=== PATIENT | female | born 1965 | race American Indian/Alaskan Native ===

== ENCOUNTER 2022-06-19 13:34 | Outpatient (REF) | payer OTHER, SELFPAY ==
[2022-06-19 16:29] LABS: MANUAL DIFF FLAG NO
[2022-06-19 16:33] LABS: Basophils Percent Auto 0.3 % (0-2); Eosinophils Absolute Auto 0.1 X10*3/uL (0.0-0.4); Eosinophils Percent Auto 2.3 % (0-4); Hematocrit 43.3 % (37.0-47.0); Hemoglobin 14.3 g/dl (12.0-16.0); Imm Gran Abs Auto 0.03 X10*3/uL (0.00-0.03); Imm Gran Pct Auto 0.5 % (0.0-0.4); Lymphocytes Absolute Auto 1.7 X10*3/uL (1.2-4.9); Lymphocytes Percent Auto 28.2 % (20-40); Mean Corpuscular Hemoglobin 29.7 pg (27.0-33.0); Mean Corpuscular Volume 89.8 fL (80.0-98.0); Mean Platelet Volume 11.7 fL (9.4-12.3); Monocytes Absolute Auto 0.5 X10*3/uL (0.1-1.2); Monocytes Percent Auto 7.8 % (2-11); Neutrophils Absolute Auto 3.7 x10*3/uL (2.0-8.3); Neutrophils Percent Auto 60.9 % (45-73); Platelet Count 257 X10*3/uL (160-400); Red Blood Count 4.82 X10*6/uL (4.20-5.50); Red Cell Distribution Width 12.8 % (11.0-16.0); White Blood Count 6.1 X10*3/uL (4.8-10.8)
[2022-06-19 16:50] LABS: Alanine Aminotransferase 16 U/L (0-31); Albumin Level 4.2 g/dL (3.5-5.0); Alkaline Phosphatase 105 U/L (39-117); Anion Gap 9 (12-20); Aspartate Amino Transferase 18 U/L (5-31); Bilirubin Total 0.7 mg/dL (0.0-1.0); Blood Urea Nitrogen 14 mg/dL (9-16); Calcium 9.6 mg/dL (8.4-10.2); Carbon Dioxide 30 mmol/L (22-29); Chloride 105 mmol/L (96-108); Cholesterol 173 mg/dL; Estimated Glomerular Filt Rate > 60; Glucose Fasting 83 mg/dL (60-99); HDL Cholesterol 44 mg/dL; LDL Cholesterol Calculated 114 mg/dl; Potassium 4.5 mmol/L (3.3-5.1); Sodium 139 mmol/L (135-145); Triglycerides 77 mg/dL
[2022-06-19 16:53] LABS: Estimated Average Glucose 103 mg/dL; Hemoglobin A1c % 5.2 %
[2022-06-19 17:11] LABS: TSH reflex Free T4 2.52 uIU/mL (0.32-4.0); Vitamin B12 282 pg/mL (200-900)
[2022-06-24 16:49] LABS: Vitamin D 25-OH, D2 <4 ng/mL; Vitamin D 25-OH, D3 13 ng/mL; Vitamin D 25-OH, Total 13 ng/mL (30-100)
== END 2022-06-19 13:35 | disposition home or self-care (01) ==
LOC: HO.HMGCLDS 13:34
PROVIDERS: PCP Internal Medicine; Visit Provider Internal Medicine
DX: Z00.01 Encounter for general adult medical examination with abnormal findings (principal); E66.09 Other obesity due to excess calories; R26.81 Unsteadiness on feet; F99 Mental disorder, not otherwise specified; Z83.3 Family history of diabetes mellitus
CPT/HCPCS: 36415; 80053; 80061; 82306; 82607; 83036; 84443; 85025

== ENCOUNTER 2022-06-27 13:59 | Outpatient (REF) | payer OTHER, SELFPAY ==
--- NOTE | ~2022-06-27 | MM_ITS ---
EXAMINATION: MM SCREENING DIGITAL BREAST TOMOSYNTHESIS, BILATERAL CLINICAL INFORMATION: Screening. Asymptomatic. The lifetime risk of breast cancer based on the Tyrer-Cuzick Model is 9%. COMPARISON: Outside mammography: 11/04/2012, 10/10/2011, 06/28/2010 ([facility]) TECHNIQUE: Digital breast tomosynthesis is performed in both the craniocaudal and mediolateral oblique views along with computer-aided detection (CAD). Synthesized 2D images are generated from the tomosynthesis. FINDINGS: There are scattered areas of fibroglandular density (ACR BI-RADS breast composition Category b). Breast tissue composition borders on predominantly fatty. There are no significant masses, abnormal calcifications, or other abnormalities. No developing density or architectural abnormality. The axilla are unremarkable. MM/MM tomosynthesis screening BI IMPRESSION: No mammographic evidence of malignancy. ASSESSMENT: BI-RADS 1: Negative RECOMMENDATION: Routine annual mammography screening. This patient's information was entered into a reminder system with a target due date for their next mammogram.
== END 2022-06-27 14:00 | disposition home or self-care (01) ==
LOC: HO.MAMMO 13:59
PROVIDERS: PCP Internal Medicine; Visit Provider Internal Medicine
DX: Z12.31 Encounter for screening mammogram for malignant neoplasm of breast (principal)
CPT/HCPCS: 77063; 77067

== ENCOUNTER 2022-09-16 13:44 | Outpatient (REF) | payer OTHER, SELFPAY ==
[2022-09-17 08:54] LABS: BV Int Neg Control Negative (Negative); BV Int Pos Control Positive (Positive)
== END 2022-09-16 13:45 | disposition home or self-care (01) ==
LOC: HO.LAB 13:44
PROVIDERS: PCP Internal Medicine; Visit Provider Advanced Practice Midwife
DX: Z01.419 Encounter for gynecological examination (general) (routine) without abnormal findings (principal); N95.0 Postmenopausal bleeding; N95.1 Menopausal and female climacteric states; Z20.2 Contact with and (suspected) exposure to infections with a predominantly sexual mode of transmission
CPT/HCPCS: 87480; 87510; 87660

== ENCOUNTER 2022-09-16 14:26 | Outpatient (REF) | payer OTHER, SELFPAY ==
[2022-09-16 17:35] LABS: CT PCR NOT DETECTED (Not Detect.); NG PCR NOT DETECTED (Not Detect.)
[2022-09-18 00:33] LABS: Follicle Stimulating Hormone 27.2 mIU/mL
[2022-09-19 06:28] LABS: HPV mRNA E6/E7 rflx Not Detected (Not Detected)
== END 2022-09-16 14:27 | disposition home or self-care (01) ==
LOC: HO.LNP 14:26
PROVIDERS: Visit Provider Advanced Practice Midwife
DX: Z01.419 Encounter for gynecological examination (general) (routine) without abnormal findings (principal); N95.0 Postmenopausal bleeding; R23.2 Flushing; Z20.2 Contact with and (suspected) exposure to infections with a predominantly sexual mode of transmission
CPT/HCPCS: 0353U; 83001; 87624; 88142

== ENCOUNTER 2022-09-19 14:13 | Outpatient (REF) | payer OTHER, MEDICAID, SELFPAY ==
--- NOTE | ~2022-09-19 | US_ITS ---
EXAMINATION: US PELVIS CLINICAL INFORMATION: 57-year-old, with postmenopausal bleeding COMPARISON: None available. TECHNIQUE: Ultrasound of the pelvis is performed using both transabdominal and transvaginal transducers along with Doppler. Transvaginal imaging is performed due to inadequate visualization transabdominally. FINDINGS: Uterus: The uterus is anteverted and measures 13 x 9.1 x 8.8 cm. Within the endometrial canal is a large cystic heterogeneous mass measuring 7.9 x 7.5 x 7.9 cm. Adnexa: Bilateral ovaries are not visualized. No large adnexal mass. US/US pelvic and transvaginal IMPRESSION: Within the endometrial canal is a large cystic heterogeneous mass measuring 7.9 x 7.5 x 7.9 cm. This is concerning for malignancy. Recommend gynecologic consult. The report will be called to the ordering clinician by a [place] [facility] [employer].
== END 2022-09-19 14:14 | disposition home or self-care (01) ==
LOC: HO.US 14:13
PROVIDERS: PCP Internal Medicine; Visit Provider Advanced Practice Midwife
DX: N95.0 Postmenopausal bleeding (principal)
CPT/HCPCS: 76830; 76856

== ENCOUNTER 2022-09-29 09:39 | Outpatient (REF) | payer OTHER, MEDICAID, SELFPAY | END 2022-09-29 09:40 | disposition home or self-care (01) | LOC: HO.LAB 09:39 | PROVIDERS: PCP Internal Medicine; Visit Provider Advanced Practice Midwife | DX: N80.9 Endometriosis, unspecified (principal); Z71.2 Person consulting for explanation of examination or test findings | CPT/HCPCS: 58100; 81025; 88305 ==

== ENCOUNTER → 2022-10-01 10:10 | Outpatient (BNVA) | payer OTHER, SELFPAY | PROVIDERS: Visit Provider Advanced Practice Midwife | DX: Z71.2 Person consulting for explanation of examination or test findings (principal); N80.9 Endometriosis, unspecified; N85.8 Other specified noninflammatory disorders of uterus | CPT/HCPCS: Q3014 ==

== ENCOUNTER 2022-10-09 12:31 | Outpatient (REF) | payer OTHER, SELFPAY ==
[2022-10-11 12:39] LABS: CA-125 52 U/mL (<35)
== END 2022-10-09 12:32 | disposition home or self-care (01) ==
LOC: HO.LAB 12:31
PROVIDERS: Visit Provider Advanced Practice Midwife
DX: N85.8 Other specified noninflammatory disorders of uterus (principal)
CPT/HCPCS: 36415; 86304

== ENCOUNTER → 2022-10-29 13:48 | Outpatient (BNVA) | payer OTHER, SELFPAY | PROVIDERS: Visit Provider Advanced Practice Midwife | DX: Z71.2 Person consulting for explanation of examination or test findings (principal); N85.8 Other specified noninflammatory disorders of uterus; N95.0 Postmenopausal bleeding | CPT/HCPCS: Q3014 ==

== ENCOUNTER 2024-01-22 14:28 | Outpatient (AMB) | payer OTHER, SELFPAY ==
--- NOTE | 2024-01-22 14:37 | A.OFFPC_ITS ---
Vital Signs 01/22/24 14:38 Height 5 ft 3 in Weight 218 lb 2 oz BMI 38.6 BP 126/80 Blood Pressure Location Rt brachial Position Sitting Pulse 69 Pulse Source Pulse Oximeter Pulse Oximetry (%) 96 Oxygen Delivery Method Room Air Intake Visit Reasons: lower leg edema x 3 weeks Allergies acetaminophen [From Percocet] Allergy (Intermediate, Verified 01/22/24 14:38) Hives oxycodone [From Percocet] Allergy (Intermediate, Verified 01/22/24 14:38) Hives Penicillins [PENICILLINS] Allergy (Unknown, Verified 01/22/24 14:38) UNKNOWN Medication List - Last Reconciled 01/22/24 by Nurys Souza MD clonazepam 1 mg PO BEDTIME PRN paroxetine HCl 30 mg PO DAILY quetiapine mg PO Tobacco use date assessed: 01/22/24 Dental Screening Dental Screen Date: 01/22/24 Did you have a dental visit in the last 12 months?: Yes Did you have a dental problem in the last 6 months where you did not have access to dental care?: No Was dental information given to patient?: Patient has dentist HPI lower leg edema x 3 weeks HPI Details Patient is a 58-year-old female psychiatric patient and is taking psychiatric medication History of lap band reversal as it did not help lose weight Came in today to talk about swelling of her ankle at the end of the day I see that she has also gained weight almost 30 lb since September of last year On exam her lungs are clear and heart rate is regular EKG done today showed normal sinus rhythm 63 beats per, no acute ST-T findings I have ordered labs for the patient she will return in couple of weeks for follow-up Meanwhile I have also sent Lasix that she may take if her feet swell She has no swelling at this time [facility] Medical History Endometriotic cyst Uterine mass Hot flashes PMB (postmenopausal bleeding) Depression with anxiety Surgical History H/O eye surgery Hx of laparoscopic gastric banding Family History Paternal Aunt History of breast cancer Social History Housing: Apartment Alcohol intake: never Patient Tobacco Use Status: Current everyday Tobacco user Cigarettes Per Day: 15 e-Cigarette/Vaping Use: Never Used service: No Current occupational status: employed Sexual orientation: Straight/Heterosexual Gender identity: Female Cognitive needs: No Hearing needs: No Vision needs: Yes Questionnaire PHQ-9 Over the last 2 weeks, how often have you been bothered by any of the following problems? 1. Little interest or pleasure in doing things: not at all 2. Feeling down, depressed, or hopeless: not at all 3. Trouble falling or staying asleep, or sleeping too much: not at all 4. Feeling tired or having little energy: not at all 5. Poor appetite or overeating: not at all 6. Feeling bad about yourself - or that you are a failure or have let yourself or your family down: not at all 7. Trouble concentrating on things, such as reading the newspaper or watching television: not at all 8. Moving or speaking so slowly that other people could have noticed. Or the opposite - being so fidgety or restless that you have been moving around a lot more than usual: not at all 9. Thoughts that you would be better off or of hurting yourself in some way: not at all Total score: 0 Depression Screening Interpretation: Negative Depression Screening Done: Yes 96099 - PHQ-9 Billing: Yes Source: Developed by Drs. Lenny Avila, Stella Bianchi, Doroteo Baez and colleagues, with an educational armand from [employer]. Thrive Questionnaire Date Thrive assessed: 01/22/24 I am a: Patient What is your living situation today?: I have a steady place to live Within the past 12 months, did the food you bought not last and you didn't have the money to get more?: Never true Within the past 12 months, did you worry whether your food would run out before you got money to buy more?: Never true Do you have trouble paying for medicines?: No Do you have trouble getting transportation to medical appointments?: No Do you have trouble paying your heating and electricity bill?: No Do you have trouble taking care of your child, family member or friend?: No Do you have trouble with day-to-day activities such as bathing, preparing meals, shopping, managing finances, etc.?: No Are you currently unemployed and looking for a job?: No Are you interested in more education?: No Please select the resources that you would like help with: None Currently or been in a relationship where the following occur: No concerns reported THRIVE Score: 0 AUDIT C Alcohol Use Questionnaire (AUDIT-C) 1. How often do you have a drink containing alcohol?: Never 3. How often do you have six or more drinks on one occasion?: Never Total Score: 0 Score Reviewed/Action Taken: Yes SHANIQUE-7 AMB Questionnaire SHANIQUE-7 Date SHANIQUE - 7 assessed: 01/22/24 Feeling nervous, anxious, or on edge: 0 = Not at all Not being able to stop or control worryin = Not at all Worrying too much about different things: 0 = Not at all Trouble relaxin = Not at all Being so restless that it is hard to sit still: 0 = Not at all Becoming easily annoyed or irritable: 0 = Not at all Feeling afraid as if something awful might happen: 0 = Not at all Total SHANIQUE-7 score (0-4 normal; 5-9 mild; 10-14 moderate; 15-21 severe): 0 Source: Developed by Drs. Lenny Avila, Stella Bianchi, Doroteo Baez and colleagues, with an educational armand from [employer]. SHANIQUE-7 Assessment Billing SHANIQUE-7 Assessment Tool: SHANIQUE-7 Assessment 81027 Review of Systems Const Denies chills and Denies fever(s) ENT Denies epistaxis and Denies nasal discharge Card Denies chest pain Resp Denies chest congestion, Denies cough and Denies hemoptysis GI Denies diarrhea and Denies nausea Skin/Breast Denies rash Neuro Reports no additional complaints Psych Reports no additional complaints Endo Reports no additional complaints Physical exam (Primary Care) Vital Signs: Last Vital Signs Pulse 69 01/22/24 14:38 BP 126/80 01/22/24 14:38 Pulse Ox 96 01/22/24 14:38 Oxygen Delivery Method Room Air 01/22/24 14:38 BMI result Body Mass Index 38.6 Tobacco/Smoking Status: Tobacco use Status Tobacco use date assessed 01/22/24 01/22/24 14:41 Patient Tobacco Use Status Current everyday Tobacco 01/22/24 14:41 e-Cigarette/Vaping Use Never Used 01/22/24 14:41 PHQ-9: PHQ-9 Score PHQ-9: Total score 0 01/22/24 15:33 Depression Screening Interpretation: Negative Thrive Assessment: Date of Thrive Assessment Date Thrive assessed 01/22/24 01/22/24 14:41 Currently or been in a relationship where the following occur: No concerns reported Const General: cooperative, comfortable and no acute distress Orientation/consciousness: patient oriented x3 HENMT Head: Yes normocephalic Eyes General: appearance normal, both eyes and all related structures Neck Neck: Yes supple Resp Effort & Inspection: normal respiratory effort, no cough and no stridor Cardio Rhythm: regular rhythm Heart sounds: S1 normal heart sound present and S2 normal heart sound present Skin General skin exam: turgor normal Neuro General: patient oriented x3, tone normal and moves all extremities Extrem Right lower extremity: no edema Left lower extremity: no edema Office Procedures EKG [id number], Complete Assessment and Plan Assessment & Plan (1) Edema: Code(s): R60.9 - Edema, unspecified Qualifiers: Edema type: localized Qualified Code(s): R60.0 - Localized edema (2) Psychiatric illness: Code(s): F99 - Mental disorder, not otherwise specified (3) Obesity due to excess calories: Code(s): E66.09 - Other obesity due to excess calories Qualifiers: Body mass index: BMI 38.0-38.9 Obesity classification: adult class 2 (BMI 35 - 39.9) Serious obesity comorbidity presence: without serious comorbidity Qualified Code(s): E66.09 - Other obesity due to excess calories; Z68.38 - Body mass index [BMI] 38.0-38.9, adult (4) Family history of diabetes mellitus: Code(s): Z83.3 - Family history of diabetes mellitus Plan Patient is a 58-year-old female psychiatric patient and is taking psychiatric medication History of lap band reversal as it did not help lose weight Came in today to talk about swelling of her ankle at the end of the day I see that she has also gained weight almost 30 lb since September of last year On exam her lungs are clear and heart rate is regular EKG done today showed normal sinus rhythm 63 beats per, no acute ST-T findings I have ordered labs for the patient she will return in couple of weeks for follow-up Meanwhile I have also sent Lasix that she may take if her feet swell She has no swelling at this time Orders: Orders Comprehensive Met. Panel Today E66.09 - Other obesity due to excess calories, F99 - Mental disorder, not otherwise specified, R60.9 - Edema, unspecified, Z83.3 - Family history of diabetes mellitus TSH reflex Free T4 Today E66.09 - Other obesity due to excess calories, F99 - Mental disorder, not otherwise specified, R60.9 - Edema, unspecified, Z83.3 - Family history of diabetes mellitus AMB EKG-In Office Today R60.9 - Edema, unspecified Complete Blood Count Auto Diff Today E66.09 - Other obesity due to excess calories, F99 - Mental disorder, not otherwise specified, R60.9 - Edema, unspecified, Z83.3 - Family history of diabetes mellitus LDL Cholesterol Direct Today E66.09 - Other obesity due to excess calories, F99 - Mental disorder, not otherwise specified, R60.9 - Edema, unspecified, Z83.3 - Family history of diabetes mellitus Medications: New furosemide (Lasix) 20 mg PO ONCE 14 days 14 tabs 0RF Coding Level of Care Code Est Pt Level 4 (05056) Diagnoses Localized edema R60.0 Edema type: localized Psychiatric illness F99 Class 2 obesity due to excess calories without serious comorbidity with body mass index (BMI) of 38.0 to 38.9 in adult E66.09; Z68.38 Body mass index: BMI 38.0-38.9 Obesity classification: adult class 2 (BMI 35 - 39.9) Serious obesity comorbidity presence: without serious comorbidity Family history of diabetes mellitus Z83.3 CPT Codes EKG - CPT: 68199-[id number], Complete ([id number]) Additional Codes SHANIQUE-7 Assessment Billing - SHANIQUE-7 Assessment Tool: SHANIQUE-7 Assessment 77524 ([id number])
[2024-01-22 14:38] VITALS: BP 126/80; PULSE 69; O2SAT 96; BMI 38.6
== END 2024-01-22 15:40 | disposition home or self-care (01) ==
PROVIDERS: PCP Internal Medicine; Visit Provider Internal Medicine
DX: R60.0 Localized edema (principal); F99 Mental disorder, not otherwise specified; E66.09 Other obesity due to excess calories; Z68.38 Body mass index [BMI] 38.0-38.9, adult; Z83.3 Family history of diabetes mellitus
CPT/HCPCS: 93000; 99214

== ENCOUNTER 2024-09-21 12:52 | Outpatient (REF) | payer MEDICARE, SELFPAY ==
--- NOTE | ~2024-09-21 | XR_ITS ---
EXAMINATION: XR LUMBOSACRAL SPINE CLINICAL INFORMATION: M54.50 - Low back pain, unspecified COMPARISON: None available. TECHNIQUE: Three views of the lumbosacral spine. FINDINGS: Multilevel marginal osteophyte formation and syndesmophyte formation and endplate sclerosis and decreased intervertebral disc height. Grade 1 retrolisthesis L1-2. S-shaped curvature of the thoracolumbar junction. No lytic or blastic lesions. Patient's large body habitus/obesity. XR/XR lumbar spine 2-3V IMPRESSION: Multilevel thoracolumbar spondylosis and a shaped curvature of the lumbar spine. Grade 1 retrolisthesis L1-2. Electronically signed by: Jonathan Boyle MD 09/21/2024 02:27 PM EDT
--- NOTE | ~2024-09-21 | XR_ITS ---
EXAMINATION: XR THORACIC SPINE CLINICAL INFORMATION: M54.50 - Low back pain, unspecified COMPARISON: None available. TECHNIQUE: 3 views of the thoracic spine were obtained. FINDINGS: Multilevel marginal osteophyte formation and endplate sclerosis and decreased intervertebral disc height. No acute cortical disruption or gross malalignment. Patient's large body habitus. XR/XR thoracic spine 2V IMPRESSION: Multilevel spondylosis without acute fracture or gross listhesis. Electronically signed by: Jonathan Boyle MD 09/21/2024 02:25 PM EDT
--- OUTSIDE RECORDS SUMMARY | 2024-09-21 14:37 | XMS_ITS | Clinical Summary ---
Author Organization [facility] Address [address] [place] [address] Care Team Providers Care Field Operations Manager Name Role Phone Alem Escobar PA-C Primary Care Provider [phone] Source Comments PLEASE NOTE, if this patient is a minor, it may be UNLAWFUL to discuss sensitive information that is contained in these records (such as FAMILY PLANNING, MENTAL HEALTH or SUBSTANCE ABUSE) with the minor patient's parent or other person without the patient's specific authorization.[facility] Allergies Active Allergy Reactions Criticality Noted Date Comments Penicillins Rash High 01/05/2013 Medications QUEtiapine (SEROQUEL) 100 mg tabletIndications :Insomnia Take 1 Tab by mouth nightly at bedtime. PER PSYCH. 01/06/20 13 Active paroxetine (PAXIL) 10 mg tablet Take 10 mg by mouth nightly at bedtime PER PSYCH 09/21/19 17 Active clonazePAM (KLONOPIN) 0.5 mg tablet Take 0.5 mg by mouth 2 (two) times daily PER PSYCH 09/21/19 17 Active cholecalciferol, vitamin D3, 2,000 unit capsuleIndication s:Vitamin D insufficiency Take 1 Cap by mouth once daily 90 Cap 3 10/23/19 17 Active fluticasone (FLONASE) 50 mcg/actuation nasal sprayIndications: Seasonal allergic rhinitis due to pollen Place 1 [place] into the nostril(s) once daily 16 g 4 10/23/19 17 Active loratadine (CLARITIN) 10 mg tabletIndications :Seasonal allergic rhinitis due to pollen Take 1 Tab by mouth once daily as needed for allergies 30 Tab 4 10/23/19 17 Active omeprazole (PRILOSEC) [address] capsuleIndication s:Gastroesophagea l reflux disease without esophagitis Take 1 Cap by mouth 2 (two) times daily before a meal Do not crush or chew. 60 Cap 3 10/23/19 17 Active calcium carbonate 500 mg calcium (1,250 mg) capsuleIndication s:Routine general medical examination at a health care facility Take 1 Cap by mouth 2 (two) times daily with a meal 60 Cap 3 10/23/19 17 Active docusate sodium (COLACE) 50 mg capsuleIndication s:Constipation, unspecified constipation type Take 1 Cap by mouth 2 (two) times daily as needed for constipation 30 Cap 2 10/23/19 17 Active nicotine (NICORETTE) 2 mg gumIndications:To bacco abuse disorder Take 1 Each by mouth as needed for smoking cessation Do not eat or drink for 15 minutes before or while chewing gum. 100 Each 12/26/19 17 Active ibuprofen (ADVIL,MOTRIN) 800 mg tablet Take 1 Tab by mouth 3 (three) times daily as needed for pain 90 Tab 2 12/26/19 17 Active Active Problems Problem Noted Date Diagnosed Date LBP (low back pain) 09/24/2011 Overview (01/05/2013): L5S1 DDD F/U [facility]. Tobacco abuse disorder Obesity Overview (01/05/2013): S/p lap band 10/2005 Depression Overview (01/05/2013): Psych f/u at [facility]. Insomnia Overview (01/05/2013): Psych f/u at [facility]. H/O laparoscopic adjustable gastric banding 11/04 06 Overview (01/05/2013): S/p repair 01/2008. GERD (gastroesophageal reflux disease) Allergic rhinitis due to allergen Vitamin D insufficiency Left lateral epicondylitis Overview (01/05/2013): X-rays left elbow 09/12/08 revealed small spurs and ST calcifications. Immunizations Immunization Administration Dates Next Due INFLUENZA, SEASONAL, INJECTABLE 05/25/2013,06/16 Td(adult),2 Lf tetanus toxoid,preservative free 01/29/2010 Family History Medical History Relation Name Comments Diabetes Brother Diabetes Father Heart Problems Father Hypertension Father Diabetes Mother Cancer Paternal Aunt breast Diabetes Sister Relation Name Status Comments Brother Alive Father (Age 72) Mother Alive Paternal Aunt Sister Alive Social History Tobacco Use Types Packs/Day Years Used Date Smoking Tobacco: Every Day Cigarettes Smokeless Tobacco: Never Comments:pt states that smok es 10 cigarettes a day Alcohol Use Standard Drinks/Week Comments No 0 (1 standard drink = 0.6 oz pur e alcohol) Social Connections Answer Date Recorded Social Connections and Isolation 0 01/08/2019 Financial Resource Strain Answer Date R ecorded Financial Resource Strain 0 2018 Stress Answer Date Recorded Stress 0 01/08/2019 Physical Activity Answer Date Recorded Physical Activity 0 01/08/2019 Food Insecurity Answer Date Recorded Food 0 01/08/2019 Transportation Needs Answer Date Record ed Transportation 0 01/08/2019 Housing Stability Answer Date Recorded Housing 0 01/08/2019 Safety and Environment Answer Date Nikunj rded Safety 0 01/08/2019 Utilities Answer Date Recorded Utilities 0 01/08/2019 Employment Answer Date Recorded Employment 0 01/08/2019 Comments No Sex and Gender Information Value Date Recorded Sex Assigned at Not on file Legal Sex Female 11:36 AM PDT Gender Identity Not on file Sexual Orientation Not on file Last Filed Vital Signs Vital Sign Reading Time Taken Comments Blood Pressure 100/79 10/22/2016 11:18 AM EDT Pulse 64 10/22/2016 11:18 AM EDT Temperature 36.4 ??C (97.6 ??F) 10/22/2016 11:18 AM E DT Respiratory Rate 12 10/22/2016 11:18 AM EDT Oxygen Saturation - - Inhaled Oxygen Concentration - - Weight 68 kg (150 lb) 10/22/2016 11:18 AM EDT Height 157.5 cm (5' 2 ) 10/22/2016 11:18 AM EDT Body Mass Index 27.44 10/22/2016 11:18 AM EDT Plan of Treatment Not on file Insurance MEDICARE - [place] Care Teams Field Operations Manager Relationship Specialty Start Date End Date Alem Escobar PA-C [address] [place] [address] PCP - General Internal Medicine 09/07/17
--- OUTSIDE RECORDS SUMMARY | 2024-09-21 14:37 | XMS_ITS | Clinical Summary ---
Author Organization [facility] Address [address] [place] [address] Phone Care Team Providers Care Billboard Poster Helper Name Role Phone Elisa Jennings MD Primary Care Provider [phone] Surgical History Surgery Date Site/Laterality Comments EYE SURGERY N/A PROCEDURE: HISTORICAL EYE SURGERY OTHER SURGICAL HISTORY 2019 PROCEDURE: [place] GASTRIC RSTCV W/O BYP VERTICAL-BANDED GASTROPLY; COMMENT: Laparoscopic gastric band OTHER SURGICAL HISTORY 12/16/2022 PROCEDURE: [place] TOTAL ABDOMINAL HYSTERECT W/WO RMVL TUBE OVARY; [...] topic Insurance [employer] MEDICARE ADVANTAGE Care Teams Billboard Poster Helper Relationship Specialty Start Date End Date Elisa Jennings MD PCP - General 03/08/20
== END 2024-09-21 12:53 | disposition home or self-care (01) ==
LOC: HO.HMGCX 12:52
PROVIDERS: PCP Internal Medicine; Visit Provider Internal Medicine
DX: M54.50 Low back pain, unspecified (principal); R07.9 Chest pain, unspecified; M54.6 Pain in thoracic spine; G89.29 Other chronic pain; E66.01 Morbid (severe) obesity due to excess calories; K21.9 Gastro-esophageal reflux disease without esophagitis; Z91.81 History of falling
CPT/HCPCS: 72070; 72100; 96127; 99212

== ENCOUNTER 2024-09-21 12:52 | Outpatient (AMB) | payer MEDICARE, MEDICAID, SELFPAY ==
[2024-09-21 12:54] VITALS: BP 128/80; PULSE 99; O2SAT 95; BMI 40.6
--- NOTE | 2024-09-21 12:54 | A.OFFPC_ITS ---
Vital Signs 09/21/24 12:54 Height 5 ft 3 in Weight 229 lb 6 oz BMI 40.6 BP 128/80 Blood Pressure Location Rt brachial Position Sitting Pulse 99 Pulse Source Pulse Oximeter Pulse Oximetry (%) 95 Oxygen Delivery Method Room Air Intake Visit Reasons: Back Pain Allergies acetaminophen [From Percocet] Allergy (Intermediate, Verified 09/21/24 12:54) Hives oxycodone [From Percocet] Allergy (Intermediate, Verified 09/21/24 12:54) Hives Penicillins [PENICILLINS] Allergy (Unknown, Verified 09/21/24 12:54) UNKNOWN Medication List - Last Reconciled 09/21/24 by Nurys Souza MD clonazepam 1 mg PO BEDTIME PRN furosemide (Lasix) 20 mg PO ONCE 14 days paroxetine HCl 30 mg PO DAILY quetiapine mg PO Tobacco use date assessed: 09/21/24 Dental Screening Dental Screen Date: 09/21/24 Did you have a dental visit in the last 12 months?: Yes Did you have a dental problem in the last 6 months where you did not have access to dental care?: No Was dental information given to patient?: Patient has dentist HPI Back Pain HPI Details History - The patient is a 59-year-old female pr esenting with chronic back pain. - The patient reports experiencing signi ficant back pain over the past year, which has intensified recently. - She attributes increased pain to weigh t gain following the removal of her lap band. - The patient describes difficulty risin g from bed after lying down due to the severity of the lower and mid-back pain. - She reports incidents of falling due t o leg weakness, once in the kitchen where she couldn?t get up unassisted. - Pain reportedly worsens with physical activities like packing and using the stairs, as her laundry is located downstairs. - The patient mentions taking four Tylen ol for pain, despite being advised against due to concerns of overuse. - She identifies allergies to oxycodone and penicillin but tolerates NSAIDs like ibuprofen. - Reflux symptoms are noted, primarily m anaged with ahus-eum-kieeuqb Tums. - Her reflux occurs mainly in the mornin g or after consumption of certain beverages, despite lacking significant relief. - The patient associates weight gain jody brian with depression and limited mobility, as prolonged walking exacerbates the pain. Problem List - Chronic Low Back Pain - Musculoskeletal Pain - Gastroesophageal Reflux Disease (GERD) - Obesity - History of Lap Band Removal - Allergy to Oxycodone and Penicillin Patient Instructions - Take diclofenac 75 mg with food twice daily. - Start pantoprazole 40 mg at night for reflux relief. - Take cyclobenzaprine at night for musc le relaxation. - Do not take more than 1-2 Tylenol per day. - Return for follow-up in a few weeks po st-x-ray and blood work. - Schedule a physical exam, fasting if p ossible, as the patient may need labs reviewed. - Be cautious when engaging in physical activities like packing and using stairs. Review of Systems - General: No fever no chills - Neurological: No headaches no dizziness - Ear nose throat: No sore throat no hearing difficulty no ear pain - Cardiovascular: No syncope, no chest pain, no palpitations - Gastrointestinal: No nausea vomiting or diarrhea - Endocrine: No polyuria polydipsia no heat intolerance - Genitourinary: No dysuria , no blood in urine Physical Exam - General: No acute distress - HEENT: No acute findings - Neck: Supple - Respiratory system: Able to talk in f ull sentences, no audible wheeze - Cardiovascular: S1-S2 regular in rate and rhythm - Gastrointestinal: No pain - no pain with percussion over spine, di scomfort paraspinal lumbar and thoracic - Extremities: No new findings - RECORD RETRIEVAL SPECIALIST: Alert awake oriented x3 motor se nsory intact straight leg negative - Skin: Normal turgor PFSH Medical History Endometriotic cyst Uterine mass Hot flashes PMB (postmenopausal bleeding) Depression with anxiety Surgical History H/O eye surgery Hx of laparoscopic gastric banding Family History Paternal Aunt History of breast cancer Social History Housing: Apartment Alcohol intake: never Patient Tobacco Use Status: Current everyday Tobacco user Cigarettes Per Day: 15 e-Cigarette/Vaping Use: Never Used service: No Current occupational status: employed Sexual orientation: Straight/Heterosexual Gender identity: Female Cognitive needs: No Hearing needs: No Vision needs: Yes Questionnaire PHQ-9 Over the last 2 weeks, how often have you been bothered by any of the following problems? 1. Little interest or pleasure in doing things: not at all 2. Feeling down, depressed, or hopeless: not at all 3. Trouble falling or staying asleep, or sleeping too much: not at all 4. Feeling tired or having little energy: not at all 5. Poor appetite or overeating: not at all 6. Feeling bad about yourself - or that you are a failure or have let yourself or your family down: not at all 7. Trouble concentrating on things, such as reading the newspaper or watching television: not at all 8. Moving or speaking so slowly that other people could have noticed. Or the opposite - being so fidgety or restless that you have been moving around a lot more than usual: not at all 9. Thoughts that you would be better off or of hurting yourself in some way: not at all Total score: 0 Depression Screening Interpretation: Negative Depression Screening Done: Yes 33605 - PHQ-9 Billing: Yes Source: Developed by Drs. Lenny Avila, Stella Bianchi, Doroteo Baez and colleagues, with an educational armand from [employer]. Thrive Questionnaire Date Thrive assessed: 09/21/24 I am a: Patient What is your living situation today?: I have a steady place to live Within the past 12 months, did the food you bought not last and you didn't have the money to get more?: Never true Within the past 12 months, did you worry whether your food would run out before you got money to buy more?: Never true Do you have trouble paying for medicines?: No Do you have trouble getting transportation to medical appointments?: No Do you have trouble paying your heating and electricity bill?: No Do you have trouble taking care of your child, family member or friend?: No Do you have trouble with day-to-day activities such as bathing, preparing meals, shopping, managing finances, etc.?: No Are you currently unemployed and looking for a job?: No Are you interested in more education?: No Please select the resources that you would like help with: None Currently or been in a relationship where the following occur: No concerns reported THRIVE Score: 0 AUDIT C Alcohol Use Questionnaire (AUDIT-C) 1. How often do you have a drink containing alcohol?: Never 3. How often do you have six or more drinks on one occasion?: Never Total Score: 0 Score Reviewed/Action Taken: Yes SHANIQUE-7 AMB Questionnaire SHANIQUE-7 Date SHANIQUE - 7 assessed: 09/21/24 Feeling nervous, anxious, or on edge: 0 = Not at all Not being able to stop or control worryin = Not at all Worrying too much about different things: 0 = Not at all Trouble relaxin = Not at all Being so restless that it is hard to sit still: 0 = Not at all Becoming easily annoyed or irritable: 0 = Not at all Feeling afraid as if something awful might happen: 0 = Not at all Total SHANIQUE-7 score (0-4 normal; 5-9 mild; 10-14 moderate; 15-21 severe): 0 Source: Developed by Drs. Lenny Avila, Stella Bianchi, Doroteo Baez and colleagues, with an educational armand from [employer]. SHANIQUE-7 Assessment Billing SHANIQUE-7 Assessment Tool: SHANIQUE-7 Assessment 83588 Physical exam (Primary Care) Vital Signs: Last Vital Signs Pulse 99 09/21/24 12:54 BP 128/80 09/21/24 12:54 Pulse Ox 95 09/21/24 12:54 Oxygen Delivery Method Room Air 09/21/24 12:54 BMI result Body Mass Index 40.6 Tobacco/Smoking Status: Tobacco use Status Tobacco use date assessed 09/21/24 09/21/24 12:55 Patient Tobacco Use Status Current everyday Tobacco 09/21/24 12:55 e-Cigarette/Vaping Use Never Used 09/21/24 12:55 PHQ-9: PHQ-9 Score PHQ-9: Total score 0 09/21/24 13:14 Depression Screening Interpretation: Negative Thrive Assessment: Date of Thrive Assessment Date Thrive assessed 09/21/24 09/21/24 12:55 Currently or been in a relationship where the following occur: No concerns reported Coding Level of Care Code Est Pt Level 4 (64452) Diagnoses Lumbar pain M54.50 Chronic bilateral thoracic back pain M54.6; G89.29 Chronicity: chronic Back pain laterality: bilateral Morbid obesity due to excess calories E66.01 Gastroesophageal reflux disease without esophagitis K21.9 Esophagitis presence: without esophagitis History of fall Z91.81 Additional Codes SHANIQUE-7 Assessment Billing - SHANIQUE-7 Assessment Tool: SHANIQUE-7 Assessment 32347 ([id number]) PHQ-9 - 31497 - PHQ-9 Billing: Yes ([id number]) Assessment & Plan Assessment & Plan (1) Lumbar pain: Code(s): M54.50 - Low back pain, unspecified Category: Medical (2) Thoracic back pain: Code(s): M54.6 - Pain in thoracic spine Category: Medical Qualifiers: Chronicity: chronic Back pain laterality: bilateral Qualified Code(s): M54.6 - Pain in thoracic spine; G89.29 - Other chronic pain (3) Morbid obesity due to excess calories: Code(s): E66.01 - Morbid (severe) obesity due to excess calories Category: Medical (4) Acid reflux: Code(s): K21.9 - Gastro-esophageal reflux disease without esophagitis Category: Medical Qualifiers: Esophagitis presence: without esophagitis Qualified Code(s): K21.9 - Gastro-esophageal reflux disease without esophagitis (5) History of fall: Code(s): Z91.81 - History of falling Category: Medical Plan History - The patient is a 59-year-old female presenting with chronic back pain. - The patient reports experiencing significant back pain over the past year, which has intensified recently. - She attributes increased pain to weight gain following the removal of her lap band. - The patient describes difficulty rising from bed after lying down due to the severity of the lower and mid-back pain. - She reports incidents of falling due to leg weakness, once in the kitchen where she couldn?t get up unassisted. - Pain reportedly worsens with physical activities like packing and using the stairs, as her laundry is located downstairs. - The patient mentions taking four Tylenol for pain, despite being advised against due to concerns of overuse. - She identifies allergies to oxycodone and penicillin but tolerates NSAIDs like ibuprofen. - Reflux symptoms are noted, primarily managed with sflp-pcm-pedpsgi Tums. - Her reflux occurs mainly in the morning or after consumption of certain beverages, despite lacking significant relief. - The patient associates weight gain primarily with depression and limited mobility, as prolonged walking exacerbates the pain. Problem List - Chronic Low Back Pain - Musculoskeletal Pain - Gastroesophageal Reflux Disease (GERD) - Obesity - History of Lap Band Removal - Allergy to Oxycodone and Penicillin Patient Instructions - Take diclofenac 75 mg with food twice daily. - Start pantoprazole 40 mg at night for reflux relief. - Take cyclobenzaprine at night for muscle relaxation. - Do not take more than 1-2 Tylenol per day. - Return for follow-up in a few weeks post-x-ray and blood work. - Schedule a physical exam, fasting if possible, as the patient may need labs reviewed. - Be cautious when engaging in physical activities like packing and using stairs. Orders: Orders XR lumbar spine 2-3V Today M54.50 - Low back pain, unspecified, R07.9 - Chest pain, unspecified XR thoracic spine 2V Today M54.50 - Low back pain, unspecified, R07.9 - Chest pain, unspecified Medications: New diclofenac sodium 75 mg PO BID 10 days 20 tabs 0RF pain pantoprazole 40 mg PO DAILY 90 tabs 0RF cyclobenzaprine 10 mg PO BEDTIME PRN 30 tabs 0RF muscle spasm
--- OUTSIDE RECORDS SUMMARY | 2024-09-21 13:58 | XMS_ITS | Patient Health Record ---
Author Organization [facility] Address [address] [place] [address] Care Team Providers Care Shift Manager Name Role Phone Unknown, Unknown Primary Care Provider Unavailab le Reason For Referral No Information Plan Of Treatment No Information Insurance Providers Payer Name Payer Address Payer Phone Subscriber Number Group Number Insured Name Patient Relationship to Insured Coverage Start Date Coverage End Date [facility] [address] [address] [place] [phone] [id number] Deidre Freeman Self - patient is the insured Medicare [address] [place] [phone] [id number] Deidre Freeman Self - patient is the insured [place] [address] [place] [address] [phone] [id number] Deidre Freeman Self - patient is the insured
--- OUTSIDE RECORDS SUMMARY | 2024-09-21 13:58 | XMS_ITS ---
Author Organization [facility] Address [address] [address] Care Team Providers Care Box Worker Name Role Phone Unknown, Unknown Primary Care Provider Unavailab BAILEY Greer Unavailable [phone] REASON FOR VISIT WM Consult Encounters Encounter Location Date Provider Diagnosis [facility] [address] [place] [address] 05/05/2023 BAILEY MOONEY Plan Of Treatment No Information Progress Notes * Deidre SUNDOB: [birth year] (59 yo F)Acc No.[id number]:05/05/2023 Progress Notes Patient:?Deidre SUN Provider:?BAILEY MOONEY MD :[id number]???Age:58 Y???Sex:Female D ate:05/05/2023 Address:[address] [place] [address], [address] Floor, [id number] Pcp:Unknown Unknown Subjective: * Chief Complaints: * ???1. WM Consult. * Medical History:? Objective: * Vitals:? Assessment: Plan: * Treatment: * Images: * Sign off status: Completed true * Provider:?BAILEY MOONEY MD Date:?05/05 Generated for Tiffany dailey/Mervin/eTransmitting on:?09/21/2024 01:58 PM EDT
--- OUTSIDE RECORDS SUMMARY | 2024-09-21 13:58 | XMS_ITS | Clinical Summary ---
Author Organization [facility] Address [address] [place] [address] Phone Care Team Providers Care Metal Shaping Machine Operator Name Role Phone Elisa Jennings MD Primary Care Provider [phone] Surgical History Surgery Date Site/Laterality Comments EYE SURGERY N/A PROCEDURE: HISTORICAL EYE SURGERY OTHER SURGICAL HISTORY 2019 PROCEDURE: [place] GASTRIC RSTCV W/O BYP VERTICAL-BANDED GASTROPLY; COMMENT: Laparoscopic gastric band OTHER SURGICAL HISTORY 12/16/2022 PROCEDURE: [place] TOTAL ABDOMINAL HYSTERECT W/WO RMVL TUBE OVARY; COMMENT: Total abdominal hysterectomy, bilateral salpingo-oophorectomy. Medical History Medical History Date Comments Depression with anxiety DX:Depre ssion with anxiety Endometriotic cyst DX:Endometrio tic cyst Hot flashes DX:Hot flashes Postmenopausal bleeding DX:Postm enopausal bleeding Uterine mass DX:Uterine mass Social History Tobacco Use Types Packs/Day Years Used Date Smoking Tobacco: Former Smokeless Tobacco: Former Comments Unknown Sex and Gender Information Value Date Recorded Sex Assigned at Not on file Legal Sex Female 11:27 PM EST Gender Identity Not on file Sexual Orientation Not on file Obstetrics History Last Filed Vital Signs Vital Sign Reading Time Taken Comments Blood Pressure 120/87 02/03/2023 9:19 AM EDT Pulse 74 02/03/2023 9:19 AM EDT Temperature - - Respiratory Rate - - Oxygen Saturation - - Inhaled Oxygen Concentration - - Weight 83.9 kg (185 lb) 02/03/2023 9:19 AM EDT Height - - Body Mass Index - - Plan of Treatment Health Maintenance Due Date Last Done Comments Breast Cancer Screening 1965 DTaP,Tdap,and Td Vaccines (1 - Tdap) 01/31/1983 Cervical Cancer Screening: P ap Smear 01/31/1985 Pneumococcal Vaccine: 50+ Ye ars (1 of 1 - PCV) 01/31/2014 Zoster Vaccines (1 of 2) 01/31/2014 Colorectal Cancer Screening: Colonoscopy 06/16/2023 Depression Screening 06/16/2023 HIV Screening 06/16/2023 Hepatitis C Screening 06/16/2023 Medicare Annual Wellness Visit 06/16/2023 Social Influencers of Health Screening 06/16/2023 COVID-19 Vaccine (1 - 2023-2 5 season) 2024 Influenza Vaccine (Season Ended) 2025 RSV Immunization Adult Patie nts (1 - 1-dose 75+ series) 01/31/2039 HIB Vaccines Aged Out No longer eligi ble based on patient's age to complete this topic HPV Vaccines Aged Out No longer eligi ble based on patient's age to complete this topic Hepatitis A Vaccines Aged Out No long er eligible based on patient's age to complete this topic Hepatitis B Vaccines Aged Out No long er eligible based on patient's age to complete this topic IPV Vaccines Aged Out No longer eligi ble based on patient's age to complete this topic MMR Vaccines Aged Out No longer eligi ble based on patient's age to complete this topic Meningococcal ACWY Vaccine Aged Out N o longer eligible based on patient's age to complete this topic Meningococcal B Vaccine Aged Out No l onger eligible based on patient's age to complete this topic Pneumococcal Vaccine: Pediat rics (0 to 5 Years) and At-Risk Patients (6 to 64 Years) Aged Out No longer eligible b ased on patient's age to complete this topic RSV Immunization Patients Un candy 20 months Aged Out No longer eligible b ased on patient's age to complete this topic Varicella Vaccines Aged Out No longer eligible based on patient's age to complete this topic Insurance [employer] MEDICARE ADVANTAGE Care Teams Metal Shaping Machine Operator Relationship Specialty Start Date End Date Elisa Jennings MD PCP - General 03/08/20
== END 2024-09-21 13:18 | disposition home or self-care (01) ==
LOC: HO.HMCC 12:53
PROVIDERS: PCP Internal Medicine; Visit Provider Internal Medicine
DX: M54.50 Low back pain, unspecified (principal); E66.01 Morbid (severe) obesity due to excess calories; Z68.41 Body mass index [BMI] 40.0-44.9, adult; M54.6 Pain in thoracic spine; G89.29 Other chronic pain; K21.9 Gastro-esophageal reflux disease without esophagitis; Z91.81 History of falling

== ENCOUNTER → 2024-09-21 13:29 | Outpatient (BNV) | payer MEDICARE, SELFPAY | PROVIDERS: PCP Internal Medicine; Visit Provider Radiology Diagnostic Radiology | DX: M47.815 Spondylosis without myelopathy or radiculopathy, thoracolumbar region (principal); M47.814 Spondylosis without myelopathy or radiculopathy, thoracic region | CPT/HCPCS: 72070; 72100 ==

== ENCOUNTER 2024-10-05 13:29 | Outpatient (REF) | payer MEDICARE, MEDICAID, SELFPAY ==
--- NOTE | ~2024-10-05 | XR_ITS ---
EXAMINATION: XR HIP, LEFT CLINICAL INFORMATION: M25.552 - Pain in left hip COMPARISON: None available. TECHNIQUE: Two views of the left hip. FINDINGS: No acute cortical disruption or malalignment. No lytic or blastic lesions. There is preservation of the joint space. Mild sclerosis and the inferior left sacroiliac joint. XR/XR hip LT min 2V IMPRESSION: No acute fracture or dislocation left hip. Negative x-ray left knee. Probable mild sacroiliitis, left-sided. Electronically signed by: Jonathan Boyle MD 10/05/2024 02:25 PM EDT
--- OUTSIDE RECORDS SUMMARY | 2024-10-05 14:28 | XMS_ITS | Clinical Summary ---
Author Organization [facility] Address [address] [place] [address] Care Team Providers Care Senior Maintenance Machinist Name Role Phone Alem Escobar PA-C Primary Care Provider [phone] Source Comments PLEASE NOTE, if this patient [...] allergic rhinitis due to pollen Place [address] [place] into the nostril(s) once daily 16 g [...] 10/2005 Depression Overview (01/05/2013): Psych f/u at [facility]. Insomnia Overview (01/05/2013): Psych f/u at [facility]. H/O laparoscopic adjustable gastric banding 11/04 06 [...] Not on file [place] Care Teams Senior Maintenance Machinist Relationship Specialty Start Date End Date Alem Escobar PA-C [address] [place] [address] PCP - General Internal Medicine 09/07/17
--- OUTSIDE RECORDS SUMMARY | 2024-10-05 14:28 | XMS_ITS | Clinical Summary ---
Author Organization [address] [facility] Address [address] [place] [address] Phone Care Team Providers Care Intraoperative Neuro Tech Name Role Phone Elisa Jennings MD Primary Care Provider [phone] Surgical History Surgery Date Site/Laterality Comments EYE SURGERY N/A PROCEDURE: HISTORICAL EYE SURGERY OTHER SURGICAL HISTORY 2019 PROCEDURE: [place] GASTRIC RSTCV W/O BYP VERTICAL-BANDED GASTROPLY; COMMENT: Laparoscopic gastric band OTHER SURGICAL HISTORY 12/16/2022 PROCEDURE: [place] TOTAL ABDOMINAL HYSTERECT W/WO RMVL TUBE OVARY; [...] topic Insurance [employer] MEDICARE ADVANTAGE Care Teams Intraoperative Neuro Tech Relationship Specialty Start Date End Date Elisa Jennings MD PCP - General 03/08/20
[2024-10-05 16:32] LABS: MANUAL DIFF FLAG NO
[2024-10-05 16:37] LABS: Basophils Percent Auto 0.4 % (0-2); Eosinophils Absolute Auto 0.2 X10*3/uL (0.0-0.4); Eosinophils Percent Auto 3.2 % (0-4); Hematocrit 39.8 % (37.0-47.0); Imm Gran Abs Auto 0.03 X10*3/uL (0.00-0.03); Imm Gran Pct Auto 0.6 % (0.0-0.4); Lymphocytes Absolute Auto 2.2 X10*3/uL (1.2-4.9); Lymphocytes Percent Auto 40.8 % (20-40); Mean Corpuscular HGB Conc 32.7 g/dl (31.0-35.0); Mean Corpuscular Hemoglobin 29.8 pg (27.0-33.0); Mean Corpuscular Volume 91.3 fL (80.0-98.0); Mean Platelet Volume 11.8 fL (9.4-12.3); Monocytes Absolute Auto 0.4 X10*3/uL (0.1-1.2); Monocytes Percent Auto 8.3 % (2-11); Neutrophils Absolute Auto 2.5 x10*3/uL (2.0-8.3); Neutrophils Percent Auto 46.7 % (45-73); Platelet Count 264 X10*3/uL (160-400); Red Blood Count 4.36 X10*6/uL (4.20-5.50); Red Cell Distribution Width 13.4 % (11.0-16.0); White Blood Count 5.3 X10*3/uL (4.8-10.8)
[2024-10-05 16:45] LABS: Estimated Average Glucose 114 mg/dL; Hemoglobin A1C 126.8342 umol/L; Hemoglobin A1c % 5.6 % (<6.0); Total Hemoglobin (HGBA1C) 3400.5906 umol/L
[2024-10-05 17:09] LABS: Alanine Aminotransferase 33 U/L (0-31); Alkaline Phosphatase 96 U/L (39-117); Anion Gap 11 (12-20); Aspartate Amino Transferase 29 U/L (5-31); Bilirubin Total 0.4 mg/dL (0.0-1.0); Blood Urea Nitrogen 18 mg/dL (9-16); Calcium 9.2 mg/dL (8.4-10.2); Carbon Dioxide 27 mmol/L (22-29); Chloride 110 mmol/L (96-108); Cholesterol 155 mg/dL (<200); Estimated Glomerular Filt Rate > 60; Glucose Fasting 85 mg/dL (60-99); HDL Cholesterol 34 mg/dL (>40); LDL Cholesterol Calculated 99 mg/dL (<100); Potassium 4.5 mmol/L (3.3-5.1); Sodium 143 mmol/L (135-145); Total Protein 7.1 g/dL (6.5-8.0); Triglycerides 114 mg/dL (<150)
[2024-10-05 17:14] LABS: TSH reflex Free T4 2.21 uIU/mL (0.32-4.0)
[2024-10-09 16:14] LABS: Vitamin D 25-OH, D2 <4 ng/mL; Vitamin D 25-OH, D3 14 ng/mL; Vitamin D 25-OH, Total 14 ng/mL (30-100)
== END 2024-10-05 13:30 | disposition home or self-care (01) ==
LOC: HO.HMGCX 13:29
PROVIDERS: PCP Internal Medicine; Visit Provider Internal Medicine
DX: Z00.01 Encounter for general adult medical examination with abnormal findings (principal); M25.552 Pain in left hip; M54.50 Low back pain, unspecified; F99 Mental disorder, not otherwise specified; E66.01 Morbid (severe) obesity due to excess calories; Z68.41 Body mass index [BMI] 40.0-44.9, adult; K21.9 Gastro-esophageal reflux disease without esophagitis; R07.9 Chest pain, unspecified; Z83.3 Family history of diabetes mellitus; Z13.1 Encounter for screening for diabetes mellitus
CPT/HCPCS: 36415; 73502; 80053; 80061; 82306; 83036; 84443; 85025; 99212; 99396

== ENCOUNTER 2024-10-05 13:29 | Outpatient (AMB) | payer MEDICARE, MEDICAID, SELFPAY ==
[2024-10-05 13:36] VITALS: BP 126/78; PULSE 88; O2SAT 96; BMI 42.3
--- NOTE | 2024-10-05 13:36 | A.OFFPC_ITS ---
Vital Signs 10/05/24 13:36 Height 5 ft 3 in Weight 239 lb BMI 42.3 BP 126/78 Blood Pressure Location Rt brachial Position Sitting Pulse 88 Pulse Source Pulse Oximeter Pulse Oximetry (%) 96 Oxygen Delivery Method Room Air Intake Visit Reasons: 2 week follow up Allergies acetaminophen [From Percocet] Allergy (Intermediate, Verified 10/05/24 13:36) Hives oxycodone [From Percocet] Allergy (Intermediate, Verified 10/05/24 13:36) Hives Penicillins [PENICILLINS] Allergy (Unknown, Verified 10/05/24 13:36) UNKNOWN Medication List - Last Reconciled 10/05/24 by Nurys Souza MD clonazepam 1 mg PO BEDTIME PRN cyclobenzaprine 10 mg PO BEDTIME PRN diclofenac sodium 75 mg PO BID 10 days furosemide (Lasix) 20 mg PO ONCE 14 days pantoprazole 40 mg PO DAILY paroxetine HCl 30 mg PO DAILY quetiapine mg PO Tobacco use date assessed: 10/05/24 Dental Screening Dental Screen Date: 10/05/24 Did you have a dental visit in the last 12 months?: No Did you have a dental problem in the last 6 months where you did not have access to dental care?: No Was dental information given to patient?: Patient has dentist HPI 2 week follow up HPI Details PE - The patient is a 59-year-old female pr esenting with chronic back pain and hip pain. - Patient reports a history of multiple levels of arthritis affecting her back, which has been ongoing for an unspecified period. - The patient has experienced a recent e xacerbation of back pain, as well as persistent pain localized to the left hip, impacting her ability to perform activities such as standing and climbing stairs. - Recent imaging indicated that a verteb ra has shifted slightly, contributing to the pain. - Patient reports partial relief from pa in medication, specifically diclofenac and muscle relaxants, though still experiences significant discomfort in the tailbone region extending upwards and in the left hip. - Her hip pain has been ongoing, particu larly worsened following a fall. - Patient denies having a laparoscopic a djustable gastric band currently, as it was removed approximately one year and a half ago. - Patient reports seeing a psychiatrist and counselor regularly for depression and anxiety; she currently uses quetiapine, paroxetine, and clonazepam as part of her management. - The patient expresses concerns regardi ng possible diabetes due to a significant family history, although her sugar levels were normal in 2022. - She is actively trying to manage her w eight but struggles with weight loss, hindered by physical limitations and past efforts. - Her reflux occurs mainly in the mornin g , responded to PPI Problem List - Chronic Back Pain - Hip Pain, Left - Arthritis - History of Laparoscopic Adjustable Gas tric Band Removal - Depression - Anxiety - Family History of Diabetes - Obesity Patient Instructions - Continue taking prescribed medications , including pain medication and muscle relaxants. - Arrange an appointment with a pain man agement specialist as discussed. - Undergo a left hip x-ray today in shaye tion to previously done back x-ray. - Get blood tests done today for sugar l evels, vitamin D, thyroid, cholesterol, liver, and kidney function. - Schedule and attend a mammogram and WOUND CARE COORDINATOR visit at [facility]. - Consider the Cologuard test for colon cancer screening, which will be sent to you. - Please ensure your portion sizes are s maller to help with weight loss. - Report any worsening of symptoms or co ncerns urgently. - book Mammogram and obgyn apts Review of Systems - General: No fever no chills - Neurological: No headaches no dizziness - Ear nose throat: No sore throat no hearing difficulty no ear pain - Cardiovascular: No syncope, no chest pain, no palpitations - Gastrointestinal: No nausea vomiting or diarrhea - Endocrine: No polyuria polydipsia no heat intolerance - Genitourinary: No dysuria , no blood in urine Physical Exam General: No acute distress HEENT: No acute findings Neck: Supple Respiratory system: Able to talk in full sentences, no audible wheeze Cardiovascular: S1-S2 regular in rate and rhythm Gastrointestinal: No pain Extremities: Left hip pain, swollen occasionally but currently fine EXCEPTIONAL STUDENT EDUCATION AIDE: Alert awake oriented x3 motor sensory intact Skin: Normal turgor PFSH Medical History Endometriotic cyst Uterine mass Hot flashes PMB (postmenopausal bleeding) Depression with anxiety Surgical History H/O eye surgery Hx of laparoscopic gastric banding Family History Paternal Aunt History of breast cancer Social History Housing: Apartment Alcohol intake: never Patient Tobacco Use Status: Current everyday Tobacco user Cigarettes Per Day: 15 e-Cigarette/Vaping Use: Never Used service: No Current occupational status: employed Sexual orientation: Straight/Heterosexual Gender identity: Female Cognitive needs: No Hearing needs: No Vision needs: Yes Questionnaire Thrive Questionnaire Date Thrive assessed: 10/05/24 I am a: Patient What is your living situation today?: I have a steady place to live Within the past 12 months, did the food you bought not last and you didn't have the money to get more?: Never true Within the past 12 months, did you worry whether your food would run out before you got money to buy more?: Never true Do you have trouble paying for medicines?: No Do you have trouble getting transportation to medical appointments?: No Do you have trouble paying your heating and electricity bill?: No Do you have trouble taking care of your child, family member or friend?: No Do you have trouble with day-to-day activities such as bathing, preparing meals, shopping, managing finances, etc.?: No Are you currently unemployed and looking for a job?: No Are you interested in more education?: No Please select the resources that you would like help with: None Currently or been in a relationship where the following occur: No concerns reported THRIVE Score: 0 AUDIT C Alcohol Use Questionnaire (AUDIT-C) 1. How often do you have a drink containing alcohol?: Never 3. How often do you have six or more drinks on one occasion?: Never Total Score: 0 Score Reviewed/Action Taken: Yes SHANIQUE-7 AMB Questionnaire SHANIQUE-7 Date SHANIQUE - 7 assessed: 09/21/24 Source: Developed by Drs. Lenny Avila, Stella Bianchi, Doroteo Baez and colleagues, with an educational armand from [employer]. Physical exam (Primary Care) Vital Signs: Last Vital Signs Pulse 88 10/05/24 13:36 BP 126/78 10/05/24 13:36 Pulse Ox 96 10/05/24 13:36 Oxygen Delivery Method Room Air 10/05/24 13:36 BMI result Body Mass Index 42.3 Tobacco/Smoking Status: Tobacco use Status Tobacco use date assessed 10/05/24 10/05/24 13:37 Patient Tobacco Use Status Current everyday Tobacco 10/05/24 13:37 e-Cigarette/Vaping Use Never Used 10/05/24 13:37 Thrive Assessment: Date of Thrive Assessment Date Thrive assessed 10/05/24 10/05/24 13:42 Currently or been in a relationship where the following occur: No concerns reported Coding Level of Care Code Est Pt Level 4 (62095) Est Pt Prev Care 40-64y(34836) Diagnoses Encounter for general adult medical examination with abnormal findings Z00.01 Hip pain, left M25.552 Family history of diabetes mellitus Z83.3 Psychiatric illness F99 Morbid obesity due to excess calories E66.01 Gastroesophageal reflux disease without esophagitis K21.9 Esophagitis presence: without esophagitis Lumbar pain M54.50 Chest pain, unspecified type R07.9 Chest pain type: unspecified Assessment & Plan Assessment & Plan (1) Encounter for general adult medical examination with abnormal findings: Code(s): Z00.01 - Encounter for general adult medical examination with abnormal findings Category: Medical (2) Hip pain, left: Code(s): M25.552 - Pain in left hip Category: Medical (3) Family history of diabetes mellitus: Code(s): Z83.3 - Family history of diabetes mellitus Category: Medical (4) Psychiatric illness: Code(s): F99 - Mental disorder, not otherwise specified Category: Medical (5) Morbid obesity due to excess calories: Code(s): E66.01 - Morbid (severe) obesity due to excess calories Category: Medical (6) Acid reflux: Code(s): K21.9 - Gastro-esophageal reflux disease without esophagitis Category: Medical Qualifiers: Esophagitis presence: without esophagitis Qualified Code(s): K21.9 - Gastro-esophageal reflux disease without esophagitis (7) Lumbar pain: Code(s): M54.50 - Low back pain, unspecified Category: Medical (8) Thoracalgia: Code(s): R07.9 - Chest pain, unspecified Category: Medical Qualifiers: Chest pain type: unspecified Qualified Code(s): R07.9 - Chest pain, unspecified Plan PE - The patient is a 59-year-old female presenting with chronic back pain and hip pain. - Patient reports a history of multiple levels of arthritis affecting her back, which has been ongoing for an unspecified period. - The patient has experienced a recent exacerbation of back pain, as well as persistent pain localized to the left hip, impacting her ability to perform activities such as standing and climbing stairs. - Recent imaging indicated that a vertebra has shifted slightly, contributing to the pain. - Patient reports partial relief from pain medication, specifically diclofenac and muscle relaxants, though still experiences significant discomfort in the tailbone region extending upwards and in the left hip. - Her hip pain has been ongoing, particularly worsened following a fall. - Patient denies having a laparoscopic adjustable gastric band currently, as it was removed approximately one year and a half ago. - Patient reports seeing a psychiatrist and counselor regularly for depression and anxiety; she currently uses quetiapine, paroxetine, and clonazepam as part of her management. - The patient expresses concerns regarding possible diabetes due to a significant family history, although her sugar levels were normal in 2022. - She is actively trying to manage her weight but struggles with weight loss, hindered by physical limitations and past efforts. - Her reflux occurs mainly in the morning , responded to PPI Problem List - Chronic Back Pain - Hip Pain, Left - Arthritis - History of Laparoscopic Adjustable Gastric Band Removal - Depression - Anxiety - Family History of Diabetes - Obesity Patient Instructions - Continue taking prescribed medications, including pain medication and muscle relaxants. - Arrange an appointment with a supervisor paint as discussed. - Undergo a left hip x-ray today in addition to previously done back x-ray. - Get blood tests done today for sugar levels, vitamin D, thyroid, cholesterol, liver, and kidney function. - Schedule and attend a mammogram and OBGYN visit at [facility]. - Consider the Cologuard test for colon cancer screening, which will be sent to you. - Please ensure your portion sizes are smaller to help with weight loss. - Report any worsening of symptoms or concerns urgently. - book Mammogram and obgyn apts Orders: Orders Comprehensive [place]. Panel Fast Today E66.01 - Morbid (severe) obesity due to excess calories, F99 - Mental disorder, not otherwise specified, K21.9 - Gastro- esophageal reflux disease without esophagitis, M25.552 - Pain in left hip, Z 00.01 - Encounter for general adult medical examination with abnormal findings, Z83.3 - Family history of diabetes mellitus XR hip LT min 2V Today M25.552 - Pain in left hip Complete Blood Count Auto Diff Today E66.01 - Morbid (severe) obesity due to excess calories, F99 - Mental disorder, not otherwise specified, K21.9 - Gastro- esophageal reflux disease without esophagitis, M25.552 - Pain in left hip, Z00.01 - Encounter for general adult medical examination with abnormal findings, Z83.3 - Family history of diabetes mellitus Lipid Panel Today E66.01 - Morbid (severe) obesity due to excess calories, F99 - Mental disorder, not otherwise specified, K21.9 - Gastro-esophageal reflux disease without esophagitis, M25.552 - Pain in left hip, Z00.01 - Encounter for general adult medical examination with abnormal findings, Z83.3 - Family history of diabetes mellitus Vitamin D 25-OH (D2 and D3) Today E66.01 - Morbid (severe) obesity due to excess calories, F99 - Mental disorder, not otherwise specified, K21.9 - Gastro- esophageal reflux disease without esophagitis, M25.552 - Pain in left hip, Z00.01 - Encounter for general adult medical examination with abnormal findings, Z83.3 - Family history of diabetes mellitus TSH reflex Free T4 Today E66.01 - Morbid (severe) obesity due to excess calories, F99 - Mental disorder, not otherwise specified, K21.9 - Gastro- esophageal reflux disease without esophagitis, M25.552 - Pain in left hip, Z00.01 - Encounter for general adult medical examination with abnormal findings, Z83.3 - Family history of diabetes mellitus Hemoglobin A1c Today E66.01 - Morbid (severe) obesity due to excess calories Referrals POUND KEEPER Referral Z01.419 - Encounter for gynecological examination (general) (routine) without abnormal findings Cologuard Test Z12.11 - Encounter for screening for malignant neoplasm of colon, Z12.12 - Encounter for screening for malignant neoplasm of rectum Pain Management Referral M25.552 - Pain in left hip, M54.50 - Low back pain, unspecified, R07.9 - Chest pain, unspecified Medications: Refilled cyclobenzaprine 10 mg PO BEDTIME PRN 30 tabs 0RF muscle spasm diclofenac sodium 75 mg PO BID 10 days 20 tabs 0RF pain furosemide (Lasix) 20 mg PO ONCE 14 days 14 tabs 0RF pantoprazole 40 mg PO DAILY 90 tabs 0RF
--- OUTSIDE RECORDS SUMMARY | 2024-10-05 14:06 | XMS_ITS | Patient Health Record ---
Author Organization [facility] Address [address] [place] [address] Care Team Providers Care Command Post Superintendent Name Role Phone Unknown, Unknown Primary Care Provider Unavailab le Reason For Referral No Information Plan Of Treatment No Information Insurance Providers Payer Name Payer Address Payer Phone Subscriber Number Group Number Insured Name Patient Relationship to Insured Coverage Start Date Coverage End Date [facility] [address] [address] [place] [address] [id number] Deidre Freeman Self - patient is the insured Medicare [address] [place] [id number] Deidre Freeman Self - patient is the [place] [address] [place] [phone] [id number] Deidre Freeman Self - patient is the insured
--- OUTSIDE RECORDS SUMMARY | 2024-10-05 14:06 | XMS_ITS | Clinical Summary ---
Author Organization [address] [facility] Address [address] [place] [address] Phone Care Team Providers Care Long Winder Tender Name Role Phone Elisa Jennings MD Primary Care Provider [phone] Surgical History Surgery Date Site/Laterality Comments EYE SURGERY N/A PROCEDURE: HISTORICAL EYE SURGERY OTHER SURGICAL HISTORY 2019 PROCEDURE: [place] GASTRIC RSTCV W/O BYP VERTICAL-BANDED GASTROPLY; COMMENT: Laparoscopic gastric band OTHER SURGICAL HISTORY 12/16/2022 PROCEDURE: [place] TOTAL ABDOMINAL HYSTERECT W/WO RMVL TUBE OVARY; [...] topic Insurance [employer] MEDICARE ADVANTAGE Care Teams Long Winder Tender Relationship Specialty Start Date End Date Elisa Jennings MD PCP - General 03/08/20
--- OUTSIDE RECORDS SUMMARY | 2024-10-05 14:06 | XMS_ITS | Clinical Summary ---
Author Organization [facility] Address [address] [place] [address] Care Team Providers Care Lithographed Plate Inspector Name Role Phone Alem Escobar PA-C Primary Care Provider [phone] Source Comments PLEASE NOTE, if this patient [...] allergic rhinitis due to pollen Place [address] [place] into the nostril(s) once daily 16 g [...] 10/2005 Depression Overview (01/05/2013): Psych f/u at [facility] [place]. Insomnia Overview (01/05/2013): Psych f/u at [facility] [place]. H/O laparoscopic adjustable gastric banding 11/04 06 [...] Not on file Insurance [place] Care Teams Lithographed Plate Inspector Relationship Specialty Start Date End Date Alem Escobar PA-C [address] [place] [address] PCP - General Internal Medicine 09/07/17
== END 2024-10-05 16:00 | disposition home or self-care (01) ==
LOC: HO.HMCC 13:35
PROVIDERS: PCP Internal Medicine; Visit Provider Internal Medicine
DX: Z00.01 Encounter for general adult medical examination with abnormal findings (principal); M25.552 Pain in left hip; E66.01 Morbid (severe) obesity due to excess calories; Z68.41 Body mass index [BMI] 40.0-44.9, adult; Z83.3 Family history of diabetes mellitus; F99 Mental disorder, not otherwise specified; K21.9 Gastro-esophageal reflux disease without esophagitis; M54.50 Low back pain, unspecified; R07.9 Chest pain, unspecified

== ENCOUNTER → 2024-10-05 14:11 | Outpatient (BNV) | payer MEDICARE, MEDICAID, SELFPAY | PROVIDERS: PCP Internal Medicine; Visit Provider Radiology Diagnostic Radiology | DX: M25.552 Pain in left hip (principal) | CPT/HCPCS: 73502 ==

== ENCOUNTER → 2024-11-10 08:42 | Outpatient (BNVA) | payer MEDICARE, MEDICAID, SELFPAY | PROVIDERS: PCP Internal Medicine; Visit Provider Internal Medicine | DX: Z13.89 Encounter for screening for other disorder (principal) ==

== ENCOUNTER 2024-11-10 08:45 | Outpatient (AMB) | payer MEDICARE, MEDICAID, SELFPAY ==
--- OUTSIDE RECORDS SUMMARY | 2024-11-10 09:13 | XMS_ITS | Patient Health Record ---
Author Organization [facility] Address [address] [place] [address] Care Team Providers Care [employer] Social Worker Name Role Phone Unknown, Unknown Primary Care Provider Unavailab le Reason For Referral No Information Plan Of Treatment No Information Insurance Providers Payer Name Payer Address Payer Phone Subscriber Number Group Number Insured Name Patient Relationship to Insured Coverage Start Date Coverage End Date [facility] [address] [address] [place] [address] [id number] Deidre Freeman Self - patient is the insured Medicare [address] [place] [phone] [id number] Deidre Freeman Self - patient is the [place] [address] [place] [phone] [id number] Deidre Freeman Self - patient is the insured
--- NOTE | 2024-11-10 09:16 | A.OFFPC_ITS ---
Intake Visit Reasons: discuss xray & lab results/ Andriod Allergies acetaminophen (From Percocet) Allergy (Intermediate, Verified 10/05/24 13:36) Hives oxycodone (From Percocet) Allergy (Intermediate, Verified 10/05/24 13:36) Hives Penicillins (PENICILLINS) Allergy (Unknown, Verified 10/05/24 13:36) UNKNOWN Medication List - Last Reconciled 11/10/24 by Nurys Souza MD clonazepam 1 mg PO BEDTIME PRN cyclobenzaprine 10 mg PO BEDTIME PRN diclofenac sodium 75 mg PO BID 10 days furosemide (Lasix) 20 mg PO ONCE 14 days pantoprazole 40 mg PO DAILY paroxetine HCl 30 mg PO DAILY quetiapine mg PO Tobacco use date assessed: 10/05/24 Dental Screening Dental Screen Date: 10/05/24 HPI discuss xray & lab results/ Andriod HPI Details History - The patient is a 59-year-old female pr esenting with back pain. - The back pain has been persistent and is associated with inflammation at the sacroiliac joint, as indicated by an x-ray. - The patient has not yet seen a pain ma nagement specialist for further evaluation and treatment. - Laboratory results indicate a vitamin D level of 14 ng/mL, which is significantly below the normal range. - The patient has been advised to start vitamin D supplementation to address the deficiency. Problem List - Inflammation of the sacroiliac joint - Vitamin D deficiency Patient Instructions - Start taking the prescribed vitamin D supplement daily for six months. - Follow up with the pain management spe cialist once the appointment is scheduled. Review of Systems - General: No fever no chills - Neurological: No headaches no dizziness - Ear nose throat: No sore throat no hearing difficulty no ear pain - Cardiovascular: No syncope, no chest pain, no palpitations - Gastrointestinal: No nausea vomiting or diarrhea PFSH Medical History Endometriotic cyst Uterine mass Hot flashes PMB (postmenopausal bleeding) Depression with anxiety Surgical History H/O eye surgery Hx of laparoscopic gastric banding Family History Paternal Aunt History of breast cancer Social History Housing: Apartment Alcohol intake: never Patient Tobacco Use Status: Current everyday Tobacco user Cigarettes Per Day: 15 e-Cigarette/Vaping Use: Never Used service: No Current occupational status: employed Sexual orientation: Straight/Heterosexual Gender identity: Female Cognitive needs: No Hearing needs: No Vision needs: Yes Questionnaire Thrive Questionnaire Date Thrive assessed: 09/21/24 I am a: Patient SHANIQUE-7 AMB Questionnaire SHANIQUE-7 Date SHANIQUE - 7 assessed: 09/21/24 Source: Developed by Drs. Lenny Avila, Stella Bianchi, Doroteo Baez and colleagues, with an educational armand from [employer]. Physical exam (Primary Care) Tobacco/Smoking Status: Tobacco use Status Tobacco use date assessed 10/05/24 11/10/24 09:16 Patient Tobacco Use Status Current everyday Tobacco 11/10/24 09:16 e-Cigarette/Vaping Use Never Used 11/10/24 09:16 Thrive Assessment: Date of Thrive Assessment Date Thrive assessed 09/21/24 11/10/24 09:16 Coding Level of Care Code Tele Est Pt Level 3 (66006) Diagnoses Lumbar pain M54.50 Vitamin D deficiency E55.9 Assessment & Plan Assessment & Plan (1) Lumbar pain: Code(s): M54.50 - Low back pain, unspecified Category: Medical (2) Vitamin D deficiency: Code(s): E55.9 - Vitamin D deficiency, unspecified Category: Medical Plan History - The patient is a 59-year-old female presenting with back pain. - The back pain has been persistent and is associated with inflammation at the sacroiliac joint, as indicated by an x-ray. - The patient has not yet seen a painting contractor for further evaluation and treatment. - Laboratory results indicate a vitamin D level of 14 ng/mL, which is significantly below the normal range. - The patient has been advised to start vitamin D supplementation to address the deficiency. Problem List - Inflammation of the sacroiliac joint - Vitamin D deficiency Patient Instructions - Start taking the prescribed vitamin D supplement daily for six months. - Follow up with the painting contractor once the appointment is scheduled. Medications: New cholecalciferol (vitamin D3) 50 mcg PO DAILY 90 caps 3RF
== END 2024-11-10 10:26 | disposition home or self-care (01) ==
PROVIDERS: PCP Internal Medicine; Visit Provider Internal Medicine
DX: M54.50 Low back pain, unspecified (principal); E55.9 Vitamin D deficiency, unspecified

== ENCOUNTER 2024-11-29 13:45 | Outpatient (AMB) | payer MEDICARE, MEDICAID, SELFPAY ==
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
[2024-11-29 14:05] VITALS: BP 133/87; PULSE 87; O2SAT 96; BMI 41.0
--- OUTSIDE RECORDS SUMMARY | 2024-11-29 15:07 | XMS_ITS | Clinical Summary ---
Author Organization [address] [facility] Address [address] [place] [address] Phone Care Team Providers Care Manager Trade Name Role Phone Elisa Jennings MD Primary Care Provider [phone] Surgical History Surgery Date Site/Laterality Comments EYE SURGERY N/A PROCEDURE: HISTORICAL EYE SURGERY OTHER SURGICAL HISTORY 2019 PROCEDURE: CT GASTRIC RSTCV W/O BYP VERTICAL-BANDED GASTROPLY; COMMENT: Laparoscopic gastric band OTHER SURGICAL HISTORY 12/16/2022 PROCEDURE: CT TOTAL ABDOMINAL HYSTERECT W/WO RMVL TUBE OVARY; [...] - 2023-2 5 season) 2024 Influenza Vaccine (#1) 2025 RSV Immunization Adult Patie nts (1 [...] topic Insurance [employer] MEDICARE ADVANTAGE Care Teams Manager Trade Relationship Specialty Start Date End Date Elisa Jennings MD PCP - General 03/08/20
--- OUTSIDE RECORDS SUMMARY | 2024-11-29 15:07 | XMS_ITS | Clinical Summary ---
Author Organization [facility] Address [address] [place] [address] Care Team Providers Care Desktop Publishing Operator Name Role Phone Alem Escobar PA-C Primary Care Provider [phone] Source Comments PLEASE NOTE, if this patient [...] allergic rhinitis due to pollen Place [address] [place] into the nostril(s) once daily 16 g [...] 10/2005 Depression Overview (01/05/2013): Psych f/u at [facility]. Insomnia Overview (01/05/2013): Psych f/u at [facility]. H/O laparoscopic adjustable gastric banding 11/04 06 Overview (01/05/2013): S/p repair 01/2008. GERD (gastroesophageal reflux disease) Allergic rhinitis due to allergen Vitamin D insufficiency Left lateral epicondylitis Overview (01/05/2013): X-rays left elbow 09/12/08 revealed small spurs and ST calcifications. Immunizations Immunization Administration Dates Next Due INFLUENZA, SEASONAL, INJECTABLE 05/25/2013,06/16 Td (adult),2 Lf tetanus toxo id (TDVAX), preservative free 01/29/2010 Family History Medical History Relation [...] 63 10/22/2016 11:18 AM EDT Temperature 36.4 C (97.6 F) 10/22/2016 11:18 AM EDT Respiratory Rate 12 10/22/2016 11:18 AM EDT Oxygen Saturation - - Inhaled Oxygen Concentration - - Weight 68 kg (150 lb) 10/22/2016 11:18 AM EDT Height 157.5 cm (5' 2 ) 10/22/2016 11:18 AM EDT Body Mass Index 27.44 10/22/2016 11:18 AM EDT Plan of Treatment Not on file [place] Care Teams Desktop Publishing Operator Relationship Specialty Start Date End Date Alem Escobar PA-C [address] [place] [id number] PCP - General Internal Medicine 09/07/17
== END 2024-11-29 14:32 | disposition home or self-care (01) ==
LOC: HO.PMC 13:45
PROVIDERS: PCP Internal Medicine; Referring Provider Internal Medicine; Visit Provider Nurse Practitioner Family
DX: M54.50 Low back pain, unspecified (principal); Z91.81 History of falling; M25.552 Pain in left hip; M53.3 Sacrococcygeal disorders, not elsewhere classified; M51.369 Other intervertebral disc degeneration, lumbar region without mention of lumbar back pain or lower extremity pain; M43.16 Spondylolisthesis, lumbar region; M54.16 Radiculopathy, lumbar region
CPT/HCPCS: 99204

== ENCOUNTER → 2024-11-29 13:45 | Outpatient (BNVA) | payer MEDICARE, MEDICAID, SELFPAY | PROVIDERS: PCP Internal Medicine; Referring Provider Internal Medicine; Visit Provider Nurse Practitioner Family | DX: M43.16 Spondylolisthesis, lumbar region (principal); M25.552 Pain in left hip; M51.369 Other intervertebral disc degeneration, lumbar region without mention of lumbar back pain or lower extremity pain; M54.50 Low back pain, unspecified; M54.16 Radiculopathy, lumbar region; Z91.81 History of falling; G89.29 Other chronic pain | CPT/HCPCS: 99202 ==

== ENCOUNTER 2025-02-03 13:00 | Outpatient (RCR) | payer MEDICARE, MEDICAID, SELFPAY ==
--- NOTE | 2025-01-12 09:38 | MHC.PT.EP ---
[facility] [place] Office [place] Office [place] Office [address] [phone] F: [phone] F: [phone] F: [phone] F: [phone] Physical Therapy Plan of Care Date of Evaluation: 01/12/25 Date of Surgery: n/a Diagnosis: SI joint pain, lumbar degenerative disc Assessment: Patient is a 59 year old female presenting to PT with complaints of pain in her low back. Pt reports onset of pain began years ago due to insidious onset. She presents today with impairments in pain, lumbar ROM, core strength, hip strength. Pt's current occupation is none, with baseline physical activities including ambulating, ADLs, bending, lifting. Pt expresses longterm goal of reducing pain, and is motivated to work towards this in PT. Clinical presentation today is most consistent with signs and sx associated with low back pain and pt will benefit from skilled PT 2 week x 4 weeks to address the following problems and impairments noted upon evaluation: pain, lumbar ROM, core strength, hip strength.. These problems limit the patient with the following functional activities: ambulating, ADLs, bending, lifting. The prescribed treatment plan of care is medically necessary. Co-morbidities of anxiety, depression were identified and taken into considerations of plan of care. Pt was educated on HEP, role of PT, prognosis, POC. Frequency and Duration: The patient will be seen 2 x week x 4 weeks Short Term Goals: Pt will demonstrate ability to move through available lumbar ROM with min to no pain in 2 weeks. Pt will demonstrate improved hip MMT strength by 1/3 grade in 2 weeks. Video Poker Floorman Goals: Pt will demonstrate improved Chari score by 10% in 4 weeks for improved functional mobility. Pt will demonstrate ability to bend and lift household items with min to no pain in 4 weeks for return to PLOF. Pt will demonstrate ability to ambulate community distances with min to no pain in 4 weeks for return to PLOF. Treatment Plan: Modalities to reduce pain, spasms and effusion. Manual therapy to restore motion and function. Therapeutic exercise to improve strength and flexibility. Neuromuscular re-education for posture and balance. Therapeutic activities to return to functional activities of daily living. Electronically signed by: Trista Varela, PT, DPT, ATC Please sign and return to therapist. Thank you for your referral.
--- NOTE | 2025-02-09 06:48 | MHC.PT.DC ---
[facility] [place] Office [place] Office [place] Office [address] [phone] F: [phone] F: [phone] F: [phone] F: [phone] Physical Therapy Discharge Report Diagnosis: SI joint pain, lumbar degenerative disc Date of Surgery: n/a Date of Evaluation: 01/12/25 Date of Discharge: 02/09/25 Treatments to Date: 3 Cancellations to Date: 1 No Shows to Date: 0 Discharge Status: Patient Elected to Stop Discharge Summary: Pt cancelled last appointment and stated she would prefer to continue with HEP at home and be d/c. Electronically signed by: Trista Varela, PT, DPT, ATC Please sign and return to therapist. Thank you for your referral.
== END 2025-02-09 06:48 | disposition home or self-care (01) ==
LOC: HO.PTCHIC 13:00
PROVIDERS: PCP Internal Medicine; Visit Provider Nurse Practitioner Family
DX: M54.50 Low back pain, unspecified (principal); M53.3 Sacrococcygeal disorders, not elsewhere classified; M25.552 Pain in left hip; M51.369 Other intervertebral disc degeneration, lumbar region without mention of lumbar back pain or lower extremity pain; Z91.81 History of falling
CPT/HCPCS: 97110; 97161

== ENCOUNTER 2025-02-15 13:34 | Outpatient (AMB) | payer MEDICARE, MEDICAID, SELFPAY ==
[2025-02-15 13:44] VITALS: BP 114/72; PULSE 80; O2SAT 98; BMI 42.3
--- NOTE | 2025-02-15 13:44 | A.OFFPC_ITS ---
Vital Signs 02/15/25 13:44 Height 5 ft 3 in Weight 239 lb BMI 42.3 BP 114/72 Blood Pressure Location Lt brachial Position Sitting Pulse 80 Pulse Source Pulse Oximeter Pulse Oximetry (%) 98 Intake Visit Reasons: Patches - STOP Smoking Allergies acetaminophen (From Percocet) Allergy (Intermediate, Verified 02/15/25 13:44) Hives oxycodone (From Percocet) Allergy (Intermediate, Verified 02/15/25 13:44) Hives Penicillins (PENICILLINS) Allergy (Unknown, Verified 02/15/25 13:44) UNKNOWN Medication List - Last Reconciled 02/15/25 by Nurys Souza MD cholecalciferol (vitamin D3) 50 mcg PO DAILY clonazepam 1 mg PO BEDTIME PRN cyclobenzaprine 10 mg PO BEDTIME PRN diclofenac sodium 75 mg PO BID PRN furosemide (Lasix) 20 mg PO ONCE 14 days pantoprazole 40 mg PO DAILY paroxetine HCl 30 mg PO DAILY quetiapine mg PO Tobacco use date assessed: 10/05/24 Dental Screening Dental Screen Date: 10/05/24 HPI Patches - STOP Smoking HPI Details History of Present Illness The patient is a 60-year-old female presenting with smoking cessation, hypertension, and back pain. Smoking cessation: - The patient reports smoking one pack o f cigarettes per day. - The patient has not attempted the use of nicotine patches previously. - She expresses a desire to stop smoking in order to be eligible for weight loss surgery. - The patient acknowledges nicotine depe ndence as well as the habitual action of holding a cigarette. Hypertension/blood pressure fluctuations: - The patient has been attending dental appointments where variable blood pressure readings have been observed (reported both high and low). - Her most recent blood pressure measure ment was 114/72 mmHg, which she considers low. - The patient denies experiencing sympto ms of lightheadedness or dizziness with low readings. - She does not currently take medication specifically for hypertension. - Furosemide is taken daily, which could be influencing the blood pressure readings. Back pain: - The patient reports pain in the region of the sacroiliac joint. - Past imaging showed no acute fracture or dislocation in the left hip with mild sacroiliitis suggested. - She is currently taking diclofenac for pain management. - She had attended physical therapy and was informed of the potential for injections to alleviate the pain, which she initially declined. - The patient mentions experiencing stom ach pain, possibly associated with diclofenac use. - She reports a history of ulcers and wa s advised against continuing the current pain medication. Medical History: - Hypertension (variable readings noted) - Sacroiliitis in the left side - History of stomach ulcer Social History: - Smokes one pack of cigarettes per day; seeking assistance to quit. - Reports significant weight gain of 50 pounds. - Expresses intent to undergo weight los s surgery pending smoking cessation. - Mentioned use of water pills which cou ld be part of her medical regimen. Problem List - Tobacco use disorder - Hypertension (variable blood pressure) - Sacroiliitis - History of stomach ulcer Plan - Advise smoking cessation starting with the application of a 21 mg nicotine patch. Discuss potential need for behavioral support to address habitual aspects of smoking. - Discontinue diclofenac due to gastroin testinal side effects and history of ulcer; evaluate insurance coverage for alternative pain management options, including topical patches. - Consider furosemide's impact on blood pressure readings and review ongoing need based on kidney function and potential symptoms. - Discuss and recommend ultrasound-guide d injection for sacroiliitis to provide targeted pain relief without risking gastrointestinal complications from extended NSAID use. - Follow up in six weeks to evaluate smo izzy cessation progress and reassess eligibility for weight loss surgery. Patient Instructions - Begin using the nicotine patch as pres cribed to aid in quitting smoking. - Avoid using diclofenac for pain manage ment. instead try Lidoderm patches / sent - Monitor blood pressure and report any significant symptoms such as lightheadedness or dizziness. - Schedule a follow-up appointment in si x weeks. - Consider seeking pain relief injection s as discussed. Review of Systems - General: No fever no chills - Neurological: No headaches no dizziness - Ear nose throat: No sore throat no hearing difficulty no ear pain - Cardiovascular: No syncope, no chest pain, no palpitations - Gastrointestinal: No nausea vomiting or diarrhea - Endocrine: No polyuria polydipsia no heat intolerance - Genitourinary: No dysuria , no blood in urine Physical Exam General: No acute distress HEENT: No acute findings Neck: Supple Respiratory system: Able to talk in full sentences, no audible wheeze Cardiovascular: S1-S2 regular in rate and rhythm Gastrointestinal: No pain Extremities: No new findings MORTGAGE CLOSER: Alert awake oriented x3 motor intact Skin: Normal turgor [facility] Medical History Endometriotic cyst Uterine mass Hot flashes PMB (postmenopausal bleeding) Depression with anxiety Surgical History H/O eye surgery Hx of laparoscopic gastric banding Family History Paternal Aunt History of breast cancer Social History Housing: Apartment Alcohol intake: never Patient Tobacco Use Status: Current everyday Tobacco user Cigarettes Per Day: 15 e-Cigarette/Vaping Use: Never Used service: No Current occupational status: employed Sexual orientation: Straight/Heterosexual Gender identity: Female Cognitive needs: No Hearing needs: No Vision needs: Yes Questionnaire PHQ-9 Over the last 2 weeks, how often have you been bothered by any of the following problems? 1. Little interest or pleasure in doing things: not at all 2. Feeling down, depressed, or hopeless: not at all 3. Trouble falling or staying asleep, or sleeping too much: not at all 4. Feeling tired or having little energy: not at all 5. Poor appetite or overeating: not at all 6. Feeling bad about yourself - or that you are a failure or have let yourself or your family down: not at all 7. Trouble concentrating on things, such as reading the newspaper or watching television: not at all 8. Moving or speaking so slowly that other people could have noticed. Or the opposite - being so fidgety or restless that you have been moving around a lot more than usual: not at all 9. Thoughts that you would be better off or of hurting yourself in some way: not at all Total score: 0 Depression Screening Interpretation: Negative Depression Screening Done: Yes 22494 - PHQ-9 Billing: Yes Source: Developed by Drs. Lenny Avila, Stella Bianchi, Doroteo Baez and colleagues, with an educational armand from [employer]. Thrive Questionnaire Date Thrive assessed: 09/21/24 I am a: Patient What is your living situation today?: I have a steady place to live Within the past 12 months, did the food you bought not last and you didn't have the money to get more?: Never true Within the past 12 months, did you worry whether your food would run out before you got money to buy more?: Never true Do you have trouble paying for medicines?: No Do you have trouble getting transportation to medical appointments?: No Do you have trouble paying your heating and electricity bill?: No Do you have trouble taking care of your child, family member or friend?: No Do you have trouble with day-to-day activities such as bathing, preparing meals, shopping, managing finances, etc.?: No Are you currently unemployed and looking for a job?: No Are you interested in more education?: No Please select the resources that you would like help with: None Currently or been in a relationship where the following occur: No concerns reported THRIVE Score: 0 AUDIT C Alcohol Use Questionnaire (AUDIT-C) 1. How often do you have a drink containing alcohol?: Never 3. How often do you have six or more drinks on one occasion?: Never Total Score: 0 Score Reviewed/Action Taken: Yes SHANIQUE-7 AMB Questionnaire SHANIQUE-7 Date SHANIQUE - 7 assessed: 09/21/24 Feeling nervous, anxious, or on edge: 0 = Not at all Not being able to stop or control worryin = Not at all Worrying too much about different things: 0 = Not at all Trouble relaxin = Not at all Being so restless that it is hard to sit still: 0 = Not at all Becoming easily annoyed or irritable: 0 = Not at all Feeling afraid as if something awful might happen: 0 = Not at all Total SHANIQUE-7 score (0-4 normal; 5-9 mild; 10-14 moderate; 15-21 severe): 0 Source: Developed by Drs. Lenny Avila, Stella Bianchi, Doroteo Baez and colleagues, with an educational armand from [employer]. SHANIQUE-7 Assessment Billing SHANIQUE-7 Assessment Tool: SHANIQUE-7 Assessment 66341 Physical exam (Primary Care) Vital Signs: Last Vital Signs Pulse 80 02/15/25 13:44 BP 114/72 02/15/25 13:44 Pulse Ox 98 02/15/25 13:44 BMI result Body Mass Index 42.3 Tobacco/Smoking Status: Tobacco use Status Tobacco use date assessed 10/05/24 02/15/25 13:45 Patient Tobacco Use Status Current everyday Tobacco 02/15/25 13:45 e-Cigarette/Vaping Use Never Used 02/15/25 13:45 Are you ready to quit: Yes Tobacco cessation counseling provided: Yes Relapse Prevention: discussed the importance of a supportive environment and discussed negative mood or depression after quitting Number of minutes spent counselin CPT code: 84578 - 4-10 Minutes PHQ-9: PHQ-9 Score PHQ-9: Total score 0 02/15/25 13:45 Depression Screening Interpretation: Negative Thrive Assessment: Date of Thrive Assessment Date Thrive assessed 09/21/24 02/15/25 13:45 Currently or been in a relationship where the following occur: No concerns reported Coding Level of Care Code Est Pt Level 4 (91753) Diagnoses Sacroiliac joint pain M53.3 Coccydynia M53.3 Morbid obesity due to excess calories E66.01 Tobacco dependence F17.200 Chronic gastric ulcer without hemorrhage and without perforation K25.7 Gastric ulcer chronicity: chronic Gastric ulcer complication status: without hemorrhage or perforation Additional Codes PHQ-9 - 70377 - PHQ-9 Billing: Yes ([id number]) SHANIQUE-7 Assessment Billing - SHANIQUE-7 Assessment Tool: SHANIQUE-7 Assessment 67624 ([id number]) Vital Signs *Quality* - CPT code: 57761 - 4-10 Minutes ([id number]) Assessment & Plan Assessment & Plan (1) Sacroiliac joint pain: Code(s): M53.3 - Sacrococcygeal disorders, not elsewhere classified Category: Medical (2) Coccydynia: Code(s): M53.3 - Sacrococcygeal disorders, not elsewhere classified Category: Medical (3) Morbid obesity due to excess calories: Code(s): E66.01 - Morbid (severe) obesity due to excess calories Category: Medical (4) Tobacco dependence: Code(s): F17.200 - Nicotine dependence, unspecified, uncomplicated Category: Medical (5) Stomach ulcer: Code(s): K25.9 - Gastric ulcer, unspecified as acute or chronic, without hemorrhage or p erforation Category: Medical Qualifiers: Gastric ulcer chronicity: chronic Gastric ulcer complication status: without hemorrhage or perforation Qualified Code(s): K25.7 - Chronic gastric ulcer without hemorrhage or perforation Plan History of Present Illness The patient is a 60-year-old female presenting with smoking cessation, hypertension, and back pain. Smoking cessation: - The patient reports smoking one pack of cigarettes per day. - The patient has not attempted the use of nicotine patches previously. - She expresses a desire to stop smoking in order to be eligible for weight loss surgery. - The patient acknowledges nicotine dependence as well as the habitual action of holding a cigarette. Hypertension/blood pressure fluctuations: - The patient has been attending dental appointments where variable blood pressure readings have been observed (reported both high and low). - Her most recent blood pressure measurement was 114/72 mmHg, which she consi ders low. - The patient denies experiencing symptoms of lightheadedness or dizziness with low readings. - She does not currently take medication specifically for hypertension. - Furosemide is taken daily, which could be influencing the blood pressure readings. Back pain: - The patient reports pain in the region of the sacroiliac joint. - Past imaging showed no acute fracture or dislocation in the left hip with mild sacroiliitis suggested. - She is currently taking diclofenac for pain management. - She had attended physical therapy and was informed of the potential for injections to alleviate the pain, which she initially declined. - The patient mentions experiencing stomach pain, possibly associated with diclofenac use. - She reports a history of ulcers and was advised against continuing the current pain medication. Medical History: - Hypertension (variable readings noted) - Sacroiliitis in the left side - History of stomach ulcer Social History: - Smokes one pack of cigarettes per day; seeking assistance to quit. - Reports significant weight gain of 50 pounds. - Expresses intent to undergo weight loss surgery pending smoking cessation. - Mentioned use of water pills which could be part of her medical regimen. Problem List - Tobacco use disorder - Hypertension (variable blood pressure) - Sacroiliitis - History of stomach ulcer Plan - Advise smoking cessation starting with the application of a 21 mg nicotine patch. Discuss potential need for behavioral support to address habitual aspects of smoking. - Discontinue diclofenac due to gastrointestinal side effects and history of ulcer; evaluate insurance coverage for alternative pain management options, including topical patches. - Consider furosemide's impact on blood pressure readings and review ongoing need based on kidney function and potential symptoms. - Discuss and recommend ultrasound-guided injection for sacroiliitis to provide targeted pain relief without risking gastrointestinal complications from exten ded NSAID use. - Follow up in six weeks to evaluate smoking cessation progress and reassess eligibility for weight loss surgery. Patient Instructions - Begin using the nicotine patch as prescribed to aid in quitting smoking. - Avoid using diclofenac for pain management. instead try Lidoderm patches / sent - Monitor blood pressure and report any significant symptoms such as lightheadedness or dizziness. - Schedule a follow-up appointment in six weeks. - Consider seeking pain relief injections as discussed. Medications: New nicotine 1 patch transdermal DAILY 28 ea 1RF lidocaine 5% leave on most painful area for up to 12 hrs 1 patch topical DAILY 30 ea 1RF Discontinued diclofenac sodium Discontinued Reason: Doctor's Order 75 mg PO BID PRN 60 tabs 0RF pain M51.369 - Other intervertebral disc degeneration, lumbar region without mention of lumbar back pain or lower extremity pain, M53.3 - Sacrococcygeal disorders, not elsewhere classified, M54.16 - Radiculopathy, lumbar region
--- OUTSIDE RECORDS SUMMARY | 2025-02-15 14:48 | XMS_ITS ---
Author Name [facility] Organization Unknown Care Team Organization Name Specialty Phone Email Start Date End Da te [facility] 03/25/2022 01/04/2024
--- OUTSIDE RECORDS SUMMARY | 2025-02-15 14:48 | XMS_ITS | Clinical Summary ---
Author Organization [facility] Address [address] [place] [address] Care Team Providers Care Orthopedic Shoe Maker Name Role Phone Alem Escobar PA-C Primary Care Provider [phone] Source Comments PLEASE NOTE, if this patient [...] allergic rhinitis due to pollen Place 1 Traver into the nostril(s) once daily 16 g [...] Overview (01/05/2013): Psych f/u at [facility]. Insomnia Overview (01/05/2013): Psych f/u at [facility]. H/O laparoscopic adjustable gastric banding 11/04 06 [...] Treatment Not on file Insurance MEDICARE - [place] Care Teams Orthopedic Shoe Maker Relationship Specialty Start Date End Date Alem Escobar PA-C [address] [place] [phone] PCP - General Internal Medicine 09/07/17
--- OUTSIDE RECORDS SUMMARY | 2025-02-15 14:48 | XMS_ITS | Clinical Summary ---
Author Organization [address] [facility] Address [address] [place] [address] Phone Care Team Providers Care Absorption And Adsorption Engineer Name Role Phone Elisa Jennings MD Primary Care Provider [phone] Allergies Active Allergy Reactions Criticality Noted Date Comments Oxycodone Hives High 12/11/2022 Penicillins Anaphylaxis,Rash High 01/05/2013 Medications No known medications Active Problems Problem Noted Date Diagnosed Date Depression 2025 Overview (2025): Psych f/u at [facility]. GERD (gastroesophageal reflux disease) Insomnia 2025 Overview (2025): Psych f/u at [facility]. Obesity 2025 Overview (2025): S/p lap band 10/2005 Uterine mass 12/12/2022 Low back pain 09/24/2011 Overview (2025): L5S1 DDD F/U [facility]. Encounters Date Type Department Care Team Description 2025 1:30 PM EDT Office Visit Bariatric Surgery - [place] [address] [facility] [address] [place] [address] Ngozi Garcia MD Morbid obesity with BMI of 40.0-44.9, adult (CMS/HCC V24, CMS/FORMERLY [facility] V28) (Primary Dx); Encounter for screening for diabetes mellitus; Other symptoms and signs concerning food and fluid intake; Abuse of smoked substance (CMS/HCC V24, CMS/HCC V28); Abnormal weight gain; Smoker from Last 3 Months Surgical History Surgery Date Site/Laterality Comments EYE SURGERY N/A PROCEDURE: HISTORICAL EYE SURGERY OTHER SURGICAL HISTORY 2019 PROCEDURE: [place] GASTRIC RSTCV W/O BYP VERTICAL-BANDED GASTROPLY; COMMENT: Laparoscopic gastric band OTHER SURGICAL HISTORY 12/16/2022 PROCEDURE: [place] TOTAL ABDOMINAL HYSTERECT W/WO RMVL TUBE OVARY; [...] Sign Reading Time Taken Comments Blood Pressure 143/92 2025 1:39 PM EDT Pulse 89 2025 1:39 PM EDT Temperature 37.1 C (98.7 F) 2025 1:39 PM EDT Respiratory Rate - - Oxygen Saturation - - Inhaled Oxygen Concentration - - Weight 108 kg (237 lb) 2025 1:39 PM EDT Height 160 cm (5' 3 ) 2025 1:39 PM EDT Body Mass Index 41.98 2025 1:39 PM EDT Plan of Treatment Upcoming Encounters Date Type Department Care Team (Late st Contact Info) Description 05/16/2025 1:30 PM EST Nutrition Bariatric Surgery - [place] [address] [address] Mamta Jones, RD [address] [address] Health Maintenance Due Date Last Done Comments Breast Cancer Screening 1965 Colorectal Cancer Screening: Colonoscopy 1965 Hepatitis A Vaccines (1 of 2 - Risk 2-dose series) 01/31/1983 Cervical Cancer Screening: P ap Smear 01/31/1985 Pneumococcal Vaccine: 50+ Years (1 of 1 - PCV) 01/31/2014 Zoster Vaccines (1 of 2) 01/31/2014 Cholesterol Screening (Lipid Panel) 06/16/2023 HIV Screening 06/16/2023 Hepatitis C Screening 06/16/2023 Medicare Annual Wellness Visit 06/16/2023 Social Influencers of Health Screening 06/16/2023 RSV Immunization Adult Patients (1 - Risk 60-74 years 1-dose series) 2024 Depression Screening 05/18/2024 COVID-19 Vaccine (1 - 2023-2 5 season) 2025 Influenza Vaccine (#1) 2025 4, 06/16/2012 DTaP,Tdap,and Td Vaccines (3 - Td or Tdap) 07/13/2027 07/13/2017, 01/29/2010 HIB Vaccines Aged Out No longer eligi [...] to complete this topic RSV Immunization Patients Under 20 months Aged Out No longer eligible b ased on patient's age to complete this topic Varicella Vaccines Aged Out No longer eligible based on patient's age to complete this topic Insurance [employer] MEDICARE ADVANTAGE MEDICAID - [place] Care Teams Absorption And Adsorption Engineer Relationship Specialty Start Date End Date Elisa Jennings MD PCP - General 03/08/20
== END 2025-02-15 14:06 | disposition home or self-care (01) ==
LOC: HO.HMCC 13:34
PROVIDERS: PCP Internal Medicine; Visit Provider Internal Medicine
DX: M53.3 Sacrococcygeal disorders, not elsewhere classified (principal); E66.01 Morbid (severe) obesity due to excess calories; Z68.41 Body mass index [BMI] 40.0-44.9, adult; F17.210 Nicotine dependence, cigarettes, uncomplicated; K25.7 Chronic gastric ulcer without hemorrhage or perforation

== ENCOUNTER → 2025-02-15 13:34 | Outpatient (BNVA) | payer MEDICARE, MEDICAID, SELFPAY | PROVIDERS: PCP Internal Medicine; Visit Provider Internal Medicine | DX: I10 Essential (primary) hypertension (principal); M53.3 Sacrococcygeal disorders, not elsewhere classified; E66.01 Morbid (severe) obesity due to excess calories; K25.7 Chronic gastric ulcer without hemorrhage or perforation; M51.360 Other intervertebral disc degeneration, lumbar region with discogenic back pain only; M54.16 Radiculopathy, lumbar region; F17.210 Nicotine dependence, cigarettes, uncomplicated; Z71.6 Tobacco abuse counseling | CPT/HCPCS: 96127; 99212 ==

== ENCOUNTER 2025-04-05 13:18 | Outpatient (AMB) | payer MEDICARE, MEDICAID, SELFPAY ==
[2025-04-05 13:24] VITALS: BP 130/72; PULSE 83; O2SAT 97; BMI 41.8
--- NOTE | 2025-04-05 13:24 | A.OFFPC_ITS ---
Vital Signs 04/05/25 13:24 Height 5 ft 3 in Weight 236 lb BMI 41.8 BP 130/72 Blood Pressure Location Rt brachial Position Sitting Pulse 83 Pulse Source Pulse Oximeter Pulse Oximetry (%) 97 Intake Visit Reasons: 6 week follow up Allergies acetaminophen (From Percocet) Allergy (Intermediate, Verified 04/05/25 13:24) Hives oxycodone (From Percocet) Allergy (Intermediate, Verified 04/05/25 13:24) Hives Penicillins (PENICILLINS) Allergy (Unknown, Verified 04/05/25 13:24) UNKNOWN Medication List - Last Reconciled 04/05/25 by Nurys Souza MD cholecalciferol (vitamin D3) 50 mcg PO DAILY clonazepam 1 mg PO BEDTIME PRN cyclobenzaprine 10 mg PO BEDTIME PRN furosemide (Lasix) 20 mg PO ONCE 14 days lidocaine 5% 1 patch topical DAILY nicotine 1 patch transdermal DAILY pantoprazole 40 mg PO DAILY paroxetine HCl 30 mg PO DAILY quetiapine mg PO Tobacco use date assessed: 10/05/24 Dental Screening Dental Screen Date: 10/05/24 HPI HPI Comments History of Present Illness Details History of Present Illness The patient is a 60-year-old female presenting for medication refills and follow-up on chronic conditions. Tobacco Use Disorder: - The patient has not stopped smoking an d is currently smoking cigars instead of cigarettes. - She has not obtained nicotine patches due to cost, as she now has to pay for them. - During a recent three-week trip to [facility], she had a relapse after two days when her sister, who also smokes, gave her a pack of cigarettes. Back Pain: - The patient reports her back pain is n ot as severe and has subsided. - She did not use a pain patch and still has a bottle of pain medication. Peripheral Edema: - The patient reports swelling in her le gs and requires a refill of furosemide (Lasix), which she takes as needed. - She also associates this symptom with restless legs. Gastroesophageal Reflux Disease: - The patient requires a refill for pant oprazole for management of her acid reflux. Medical History: - The patient is managed by another prov ider for other conditions as she is on quetiapine, paroxetine, and clonazepam. Social History: - Smoking: The patient continues to smok e, currently using cigars. - Exercise: The patient was walking for 45 minutes to an hour daily while in [place]. - Family Stress: Reports a stressful vac ation due to her sister's behavior. - Living Situation: She is considering m oving to [place] to live with and care for her mother. Family History: - Sister (seven months older): Has cirrh osis of the liver, depression following her 's , and uses marijuana and alcohol. [facility] Medical History Endometriotic cyst Uterine mass Hot flashes PMB (postmenopausal bleeding) Depression with anxiety Surgical History H/O eye surgery Hx of laparoscopic gastric banding Family History Paternal Aunt History of breast cancer Social History Housing: Apartment Alcohol intake: never Patient Tobacco Use Status: Current everyday Tobacco user Cigarettes Per Day: 15 e-Cigarette/Vaping Use: Never Used service: No Current occupational status: employed Sexual orientation: Straight/Heterosexual Gender identity: Female Cognitive needs: No Hearing needs: No Vision needs: Yes Questionnaire Thrive Questionnaire Date Thrive assessed: 09/21/24 I am a: Patient SHANIQUE-7 AMB Questionnaire SHANIQUE-7 Date SHANIQUE - 7 assessed: 09/21/24 Source: Developed by Drs. Lenny Avila, Stella Bianchi, Doroteo Baez and colleagues, with an educational armand from [employer]. Review of Systems Narrative Review of Systems - General: No fever no chills - Neurological: No headaches no dizziness - Ear nose throat: No sore throat no hearing difficulty no ear pain - Cardiovascular: No syncope, no chest pain, no palpitations - Gastrointestinal: No nausea vomiting or diarrhea - Endocrine: No polyuria polydipsia no heat intolerance - Genitourinary: No dysuria , no blood in urine Physical exam (Primary Care) Vital Signs: Last Vital Signs Pulse 83 04/05/25 13:24 BP 130/72 04/05/25 13:24 Pulse Ox 97 04/05/25 13:24 BMI result Body Mass Index 41.8 Tobacco/Smoking Status: Tobacco use Status Tobacco use date assessed 10/05/24 04/05/25 13:30 Patient Tobacco Use Status Current everyday Tobacco 04/05/25 13:30 e-Cigarette/Vaping Use Never Used 04/05/25 13:30 Thrive Assessment: Date of Thrive Assessment Date Thrive assessed 09/21/24 04/05/25 13:30 Narrative Physical Exam - General: No acute distress - HEENT: No acute findings - Neck: Supple - Respiratory system: Able to talk in full sentences, no audible wheeze - Cardiovascular: S1-S2 regular in rate and rhythm - Gastrointestinal: No pain - Extremities: No new findings - MOVER HELPER: Alert awake oriented x3 motor intact - Skin: Normal turgor Coding Level of Care Code Est Pt Level 3 (36057) Complex EM visit Add On G2211 Diagnoses Sacroiliac joint pain M53.3 Morbid obesity due to excess calories E66.01 Tobacco dependence F17.200 Localized edema R60.0 Edema type: localized Assessment & Plan Assessment & Plan (1) Sacroiliac joint pain: Code(s): M53.3 - Sacrococcygeal disorders, not elsewhere classified Category: Medical (2) Morbid obesity due to excess calories: Code(s): E66.01 - Morbid (severe) obesity due to excess calories Category: Medical (3) Tobacco dependence: Code(s): F17.200 - Nicotine dependence, unspecified, uncomplicated Category: Medical (4) Edema: Code(s): R60.9 - Edema, unspecified Category: Medical Qualifiers: Edema type: localized Qualified Code(s): R60.0 - Localized edema Plan Problem List - Tobacco use disorder - Back pain - Peripheral edema - Gastroesophageal reflux disease Plan - A prescription for furosemide 30 tablets with one refill will be sent to the pharmacy to be taken as needed for leg swelling. - Refills for pantoprazole and vitamin D will also be sent. - All prescriptions will be sent to the [facility] on [address] - Counseled the patient to be careful, avoid heavy lifting, and avoid twisting to manage back pain.. - The patient has an upcoming physical exam appointment scheduled for September of next year. - Discussed the patient's potential move to [place] and provided information for releasing her medical records. Medications: Changed From furosemide (Lasix) 20 mg PO ONCE 14 days 14 tabs 0RF To furosemide (Lasix) 20 mg PO ONCE 30 tabs 1RF 30 days Refilled pantoprazole 40 mg PO DAILY 90 tabs 0RF
--- OUTSIDE RECORDS SUMMARY | 2025-04-06 01:13 | XMS_ITS | Patient Health Record ---
Author Organization [facility] Address [address] [place] [address] Care Team Providers Care Senior Business Broker Name Role Phone Unknown, Unknown Primary Care Provider Unavailab le Reason For Referral No Information Plan Of Treatment No Information Insurance Providers Payer Name Payer Address Payer Phone Subscriber Number Group Number Insured Name Patient Relationship to Insured Coverage Start Date Coverage End Date [facility] [address] [address] [place] [phone] [id number] Deidre Freeman Self - patient is the insured Medicare [address] [place] [address] [id number] Deidre Freeman Self - patient is the insured [place] [address] [place] [address] [phone] [id number] Deidre Freeman Self - patient is the insured
== END 2025-04-05 14:40 | disposition home or self-care (01) ==
LOC: HO.HMCC 13:19
PROVIDERS: PCP Internal Medicine; Visit Provider Internal Medicine
DX: M53.3 Sacrococcygeal disorders, not elsewhere classified (principal); E66.01 Morbid (severe) obesity due to excess calories; F17.200 Nicotine dependence, unspecified, uncomplicated; R60.0 Localized edema; Z68.41 Body mass index [BMI] 40.0-44.9, adult

== ENCOUNTER → 2025-04-05 13:18 | Outpatient (BNVA) | payer MEDICARE, MEDICAID, SELFPAY | PROVIDERS: PCP Internal Medicine; Visit Provider Internal Medicine | DX: E66.01 Morbid (severe) obesity due to excess calories (principal); M53.3 Sacrococcygeal disorders, not elsewhere classified; R60.0 Localized edema; F17.210 Nicotine dependence, cigarettes, uncomplicated; Z68.41 Body mass index [BMI] 40.0-44.9, adult | CPT/HCPCS: 99212 ==